=== PATIENT | male | born 1985 | race Caucasian/White ===

== ENCOUNTER 2017-12-03 00:02 | Emergency (ER) | payer BC ==
[2017-12-03 00:12] VITALS: TEMP 98.6
[2017-12-03 00:49] LABS: Basophils # (A) 0.1 k/uL (0-0.2); Basophils % (A) 1 %; Eosinophils # (A) 0.4 k/uL (0-0.7); Eosinophils % (A) 5 %; HCT 38.6 % (39.0-53.0); HGB 13.6 gm/dL (13.0-17.5); Lymphocytes # (A) 3.3 k/uL (1.0-4.8); Lymphocytes % (A) 45 %; MCH 30.1 pg (25.0-35.0); MCHC 35.1 g/dL (31.0-37.0); MCV 85.8 fL (80.0-100.0); Mean Platelet Volume 7.4; Monocytes # (A) 0.4 k/uL (0-1.0); Monocytes % (A) 6 %; Neutrophils % (A) 41 %; Platelet Count 255 k/uL (150-450); WBC 7.3 k/uL (3.8-10.6)
[2017-12-03 00:57] LABS: ALT 37 U/L (21-72); AST 32 U/L (17-59); Albumin 3.9 g/dL (3.5-5.0); Alkaline Phosphatase 59 U/L (38-126); Anion Gap 9 mmol/L; Blood Urea Nitrogen 24 mg/dL (9-20); Calcium 9.2 mg/dL (8.4-10.2); Carbon Dioxide 26 mmol/L (22-30); Chloride 108 mmol/L (98-107); Glucose 131 mg/dL (74-99); Potassium 3.6 mmol/L (3.5-5.1); Sodium 143 mmol/L (137-145); Total Bilirubin 0.3 mg/dL (0.2-1.3); Total Protein 6.5 g/dL (6.3-8.2)
--- NOTE | 2017-12-03 01:16 | CT ---
EXAMINATION TYPE: CT brain wo con DATE OF EXAM: 12/03/2017 COMPARISON: NONE HISTORY: syncope CT DLP: 995.50 mGycm. Automated Exposure Control for Dose Reduction was Utilized. TECHNIQUE: CT scan of the head is performed without contrast. FINDINGS: Ventricles and sulci appear normal. There is no mass effect nor midline shift. There is n o sign of intracranial hemorrhage. The calvarium is intact. There is mucosal thickening in the left m axillary sinus and to some extent the left side sphenoid sinus. CONCLUSION: Normal CT scan of the brain. Left-sided sinusitis.
[2017-12-03 01:17] VITALS: BP 126/73; PULSE 81; RESP 16
--- NOTE | 2017-12-03 01:17 | XR ---
EXAMINATION TYPE: XR chest 1V portable DATE OF EXAM: 12/03/2017 COMPARISON: NONE HISTORY: Syncope TECHNIQUE: Single frontal view of the chest is obtained. FINDINGS: Heart and mediastinum are normal. Lungs are clear. Diaphragm is normal. Bony thorax is int act. There are chest leads. IMPRESSION: Normal chest
--- NOTE | 2017-12-03 01:17 | ED ---
Syncope HPI - General Chief Complaint: Syncope Stated Complaint: Near Syncope Time Seen by Provider: 12/03/17 00:15 Source: EMS Mode of arrival: EMS Limitations: no limitations - History of Present Illness Initial Comments: This patient is a 32-year-old man who presents to be evaluated after he had an episode which he nearly passed out. The patient relates that he was in bed tonight and noted that his left leg was numb. He states that it "felt like it went to sleep." He was getting up to take the pressure off his leg and when he stood up he felt like he was going to pass out. He noticed that following that his heart was racing. The patient then went to lie back down in the bed. He states that after about a minute the symptoms had passed, but during that time his had called EMS. Patient currently states that he feels back to his baseline. All of the leg symptoms had resolved. He does not have any chest symptoms. He had not noted any palpitations other then at the point where he felt he was going to pass out but those had resolved as well. MD Complaint: almost passed out -: minutes(s) Prodromal Symptoms: other -: second(s) Injuries Sustained Associated with Event: None Current Symptoms: back to baseline Context: getting out of bed Treatments Prior to Arrival: none - Related Data Allergies Allergy/AdvReac Type Severity Reaction Status Date / Time No Known Allergies Allergy Verified 12/03/17 00:12 Review of Systems ROS Statement: Those systems with pertinent positive or pertinent negative responses have been documented in the HPI. ROS Other: All systems not noted in ROS Statement are negative. Constitutional: Denies: fever, chills, weakness Eyes: Denies: vision change Respiratory: Denies: cough, dyspnea, wheezes Cardiovascular: Reports: as per HPI, palpitations, syncope (Near syncope). Denies: chest pain, dyspnea on exertion, orthopnea Gastrointestinal: Denies: abdominal pain, nausea, vomiting Genitourinary: Denies: dysuria, hematuria Musculoskeletal: Denies: back pain Skin: Denies: rash Neurological: Reports: paresthesias. Denies: headache, weakness, numbness Past Medical History Past Medical History: Hypertension History of Any Multi-Drug Resistant Organisms: None Reported Additional Past Surgical History / Comment(s): Vasectomy, colonoscopy Past Psychological History: No Psychological Hx Reported Smoking Status: Former smoker Past Alcohol Use History: Occasional Past Drug Use History: None Reported General Exam Limitations: no limitations General appearance: alert, in no apparent distress Head exam: Present: atraumatic, normocephalic Eye exam: Present: normal appearance, PERRL, EOMI. Absent: scleral icterus, conjunctival injection, nystagmus ENT exam: Present: normal oropharynx, mucous membranes moist Neck exam: Present: normal inspection Respiratory exam: Present: normal lung sounds bilaterally. Absent: respiratory distress, wheezes, rales, rhonchi, stridor Cardiovascular Exam: Present: regular rate, normal rhythm, normal heart sounds. Absent: systolic murmur, diastolic murmur, rubs, gallop GI/Abdominal exam: Present: soft. Absent: distended, tenderness, guarding, rebound, rigid Extremities exam: Present: normal inspection, normal capillary refill. Absent: pedal edema, calf tenderness Back exam: Present: normal inspection. Absent: CVA tenderness (R), CVA tenderness (L) Neurological exam: Present: alert, oriented X3, CN II-XII intact, normal gait. Absent: motor sensory deficit Skin exam: Present: warm, dry, intact, normal color. Absent: rash Course Vital Signs 12/03/17 12/03/17 00:07 01:16 Temperature 98.6 F Pulse Rate 97 81 Respiratory 18 16 Rate Blood Pressure 156/72 126/73 O2 Sat by Pulse 98 96 Oximetry EKG Findings - EKG Comments: EKG Findings:: There is moderate voltage criteria for LVH - EKG Results: EKG: interpreted by ERMD, sinus rhythm (Rate approximate 79 bpm, with sinus arrhythmia), normal axis (Normal), normal ST/T (Normal) Medical Decision Making - Lab Data Result diagrams: 12/03/17 00:15 12/03/17 00:15 Lab Results 12/03/17 12/03/17 12/03/17 Range/Units 00:15 00:15 00:15 WBC 7.3 (3.8-10.6) k/uL RBC 4.50 (4.30-5.90) m/uL Hgb 13.6 (13.0-17.5) gm/dL Hct 38.6 L (39.0-53.0) % MCV 85.8 (80.0-100.0) fL MCH 30.1 (25.0-35.0) pg MCHC 35.1 (31.0-37.0) g/dL RDW 13.0 (11.5-15.5) % Plt Count 255 (150-450) k/uL Neutrophils % 41 % Lymphocytes % 45 % Monocytes % 6 % Eosinophils % 5 % Basophils % 1 % Neutrophils # 3.0 (1.3-7.7) k/uL Lymphocytes # 3.3 (1.0-4.8) k/uL Monocytes # 0.4 (0-1.0) k/uL Eosinophils # 0.4 (0-0.7) k/uL Basophils # 0.1 (0-0.2) k/uL Sodium 143 (137-145) mmol/L Potassium 3.6 (3.5-5.1) mmol/L Chloride 108 H (98-107) mmol/L Carbon Dioxide 26 (22-30) mmol/L Anion Gap 9 mmol/L BUN 24 H (9-20) mg/dL Creatinine 0.80 (0.66-1.25) mg/dL Est GFR (CKD-EPI)AfAm >90 (>60 ml/min/1.73 sqM) Est GFR (CKD-EPI)NonAf >90 (>60 ml/min/1.73 sqM) Glucose 131 H (74-99) mg/dL Calcium 9.2 (8.4-10.2) mg/dL Total Bilirubin 0.3 (0.2-1.3) mg/dL AST 32 (17-59) U/L ALT 37 (21-72) U/L Alkaline Phosphatase 59 (38-126) U/L Troponin I 0.017 (0.000-0.034) ng/mL Total Protein 6.5 (6.3-8.2) g/dL Albumin 3.9 (3.5-5.0) g/dL Disposition Clinical Impression: TIA (transient ischemic attack) Disposition: HOME SELF-CARE Condition: Good Instructions: Transient Ischemic Attack (ED) Referrals: Akash Sim MD [Primary Care Provider] - 1-2 days Cristobal Damon MD [STAFF PHYSICIAN] - 1-2 days Radha Villarreal MD [STAFF PHYSICIAN] - 1-2 days
== END 2017-12-03 02:37 | disposition home or self-care (01) ==
LOC: EC 00:02
DX: G45.9 Transient cerebral ischemic attack, unspecified (principal); Z87.891 Personal history of nicotine dependence
CPT/HCPCS: 36415; 70450; 71045; 80053; 84484; 85025; 93005; 99285

== ENCOUNTER 2017-12-25 18:52 | Emergency (ER) | payer BC ==
[2017-12-25 19:34] VITALS: TEMP 98.8
[2017-12-25] MEDS ORDERED: ASPIRIN 81 MG PO STA (20:33)
--- NOTE | 2017-12-25 20:52 | ED ---
Chest Pain HPI - General Chief Complaint: Chest Pain Stated Complaint: not feeling well/chest pain Time Seen by Provider: 12/25/17 20:32 Source: patient, RN notes reviewed Mode of arrival: ambulatory Limitations: no limitations - History of Present Illness Initial Comments: This a 32-year-old male presents emergency Department chief complaint of episode of chest pain. Patient states he was driving home earlier states that he felt some tightness in his chest. It only lasted a short period of time and dissipated. He is nonradiating pain he had no associated symptoms. Denies shortness breath, headache, dizziness, nausea, vomiting. He has no prior cardiac history. He states he was in the hospital approximately one month ago for TIA symptoms. He states every came back normal at that time. He does take a baby aspirin at nighttime he has not taken anything today. He has no prior cardiac disease no family history. He does state that he has a history of hypertension no hyperlipidemia no diabetes and he is a nonsmoker - Related Data Home Medications Medication Instructions Recorded Confirmed Aspirin [Adult Low Dose Aspirin EC] 81 mg PO DAILY 12/25/17 12/25/17 Lisinopril [Prinivil] 10 mg PO DAILY 12/25/17 12/25/17 Allergies Allergy/AdvReac Type Severity Reaction Status Date / Time No Known Allergies Allergy Verified 12/25/17 20:38 Review of Systems ROS Statement: Those systems with pertinent positive or pertinent negative responses have been documented in the HPI. ROS Other: All systems not noted in ROS Statement are negative. Past Medical History Past Medical History: Hypertension History of Any Multi-Drug Resistant Organisms: None Reported Additional Past Surgical History / Comment(s): Vasectomy, colonoscopy Past Psychological History: No Psychological Hx Reported Smoking Status: Former smoker Past Alcohol Use History: Occasional Past Drug Use History: None Reported General Exam Limitations: no limitations General appearance: alert, in no apparent distress Head exam: Present: atraumatic, normocephalic, normal inspection Eye exam: Present: normal appearance, PERRL, EOMI. Absent: scleral icterus, conjunctival injection, periorbital swelling ENT exam: Present: normal exam, normal oropharynx, mucous membranes moist Neck exam: Present: normal inspection. Absent: tenderness, meningismus, lymphadenopathy Respiratory exam: Present: normal lung sounds bilaterally. Absent: respiratory distress, wheezes, rales, rhonchi, stridor, chest wall tenderness Cardiovascular Exam: Present: regular rate, normal rhythm, normal heart sounds. Absent: systolic murmur, diastolic murmur, rubs, gallop, clicks GI/Abdominal exam: Present: soft, normal bowel sounds. Absent: distended, tenderness, guarding, rebound, rigid Back exam: Absent: CVA tenderness (R), CVA tenderness (L) Skin exam: Present: warm, dry, intact, normal color. Absent: rash Course Vital Signs 12/25/17 12/25/17 19:30 21:43 Temperature 98.8 F Pulse Rate 76 65 Respiratory 16 18 Rate Blood Pressure 171/75 136/75 O2 Sat by Pulse 98 98 Oximetry Chest Pain MDM - MDM This a 32-year-old male presented from for discomfort. An episode a few hours prior arrival. Patient states that pain lasts a few seconds and dissipated. No associated symptoms. Patient states he has no current chest pain. Patient has been recently evaluated by cardiology very to TIA symptoms. Patient lab work, EKG reviewed no acute abnormality. Patient be discharged at this time. Disposition Clinical Impression: Atypical chest pain Disposition: HOME SELF-CARE Condition: Stable Instructions: Chest Pain (ED) Additional Instructions: Please return to the Emergency Department if symptoms worsen or any other concerns. Referrals: Akash Sim MD [Primary Care Provider] - 1-2 days Time of Disposition: 22:04
[2017-12-25 21:22] LABS: Basophils % (A) 1 %; Eosinophils # (A) 0.7 k/uL (0-0.7); Eosinophils % (A) 9 %; HCT 43.7 % (39.0-53.0); HGB 14.5 gm/dL (13.0-17.5); Lymphocytes # (A) 2.6 k/uL (1.0-4.8); Lymphocytes % (A) 31 %; MCH 28.8 pg (25.0-35.0); MCHC 33.2 g/dL (31.0-37.0); MCV 86.7 fL (80.0-100.0); Mean Platelet Volume 7.7; Monocytes # (A) 0.6 k/uL (0-1.0); Monocytes % (A) 8 %; Neutrophils # (A) 4.1 k/uL (1.3-7.7); Neutrophils % (A) 50 %; Platelet Count 236 k/uL (150-450); RBC 5.04 m/uL (4.30-5.90); WBC 8.2 k/uL (3.8-10.6)
--- NOTE | 2017-12-25 21:29 | XR ---
EXAMINATION TYPE: XR chest 2V DATE OF EXAM: 12/25/2017 COMPARISON: 12/03/2017 HISTORY: Chest pain TECHNIQUE: Frontal and lateral views of the chest are obtained. FINDINGS: Heart and mediastinum are normal. Lungs are clear. Diaphragm is normal. Bony thorax is int act. There are chest leads. IMPRESSION: Normal chest. No change.
[2017-12-25 21:36] LABS: ALT 32 U/L (21-72); AST 26 U/L (17-59); Albumin 4.3 g/dL (3.5-5.0); Alkaline Phosphatase 63 U/L (38-126); Anion Gap 13 mmol/L; Blood Urea Nitrogen 18 mg/dL (9-20); Calcium 9.7 mg/dL (8.4-10.2); Carbon Dioxide 28 mmol/L (22-30); Chloride 101 mmol/L (98-107); Glucose 88 mg/dL (74-99); Lipase 71 U/L (23-300); Potassium 4.1 mmol/L (3.5-5.1); Sodium 142 mmol/L (137-145); Total Bilirubin 0.3 mg/dL (0.2-1.3); Total Protein 7.1 g/dL (6.3-8.2)
[2017-12-25 21:37] LABS: Partial Thromboplastin Time 24.3 sec (22.0-30.0)
[2017-12-25 21:42] LABS: Creatine Kinase 235 U/L (55-170)
[2017-12-25 21:44] VITALS: BP 136/75; PULSE 65; RESP 18
[2017-12-25 21:55] LABS: Troponin I <0.012 ng/mL (0.000-0.034)
[2017-12-25 21:58] LABS: Creatine Kinase MB 3.2 ng/mL (0.0-2.4)
== END 2017-12-25 22:12 | disposition home or self-care (01) ==
LOC: EC 18:52
DX: R07.89 Other chest pain (principal); I10 Essential (primary) hypertension; Z79.82 Long term (current) use of aspirin; Z79.899 Other long term (current) drug therapy; Z87.891 Personal history of nicotine dependence
CPT/HCPCS: 36415; 71046; 80053; 82550; 82553; 83690; 83735; 84484; 85025; 85610; 85730; 93005; 99285

== ENCOUNTER → 2018-01-17 | Outpatient (CLI) | payer BC ==
[2018-01-17 18:08] LABS: D-Dimer <0.17 mg/L FEU (<0.60); Fibrinogen 240 mg/dL (200-500)
[2018-01-18 02:05] LABS: Cardiolipin Ab IgG Interp NEGATIVE (NEGATIVE); Cardiolipin IgA Antibody <0.5 U/mL
[2018-01-18 02:06] LABS: Cardiolipin Ab IgM Interp NEGATIVE (NEGATIVE); Cardiolipin IgM Antibody 0.5 U/mL
[2018-01-18 13:00] LABS: APTT 39 Sec(s) (<43); Dilute Russell Viper Venom 39 Sec(s) (<44)
[2018-01-18 13:04] LABS: Anti-Thrombin III Antigen 117 % (80 - 120)
[2018-01-19 13:06] LABS: Anti-Thrombin III Activity 125 % (79-109)
[2018-01-19 13:41] LABS: Protein C (Activity) 125 % (71-138)
== END | disposition home or self-care (01) ==
LOC: LABWHC1 16:05
PROVIDERS: ATTEND Psychiatry & Neurology Pain Medicine
DX: G45.9 Transient cerebral ischemic attack, unspecified (principal)
CPT/HCPCS: 36415; 81240; 81291; 83090; 85300; 85301; 85303; 85306; 85379; 85384; 85613; 85670; 85730; 86147

== ENCOUNTER 2018-02-19 01:44 | Emergency (ER) | payer BC ==
--- NOTE | 2018-02-19 02:12 | ED ---
Chest Pain HPI - General Chief Complaint: Chest Pain Stated Complaint: Tingling in legs, chest pain, anxiety Time Seen by Provider: 02/19/18 02:03 Source: patient Mode of arrival: wheelchair Limitations: no limitations - History of Present Illness Initial Comments: This patient's a 32-year-old man who presents with complaint that he feels a dull sensation on his chest. It is been going on since the morning. It is mild and constant. The patient has not noted any worsening or relieving factors. He states that he has also had some associated tingling of both feet, and he has been feeling somewhat anxious. Patient states she has been undergoing workup for similar symptoms which have been occurring since November, and also the associated anxiety. MD Complaint: chest pain Onset/Timin -: hour(s) Onset: during rest Pain Location: substernal Pain Radiation: none Severity: mild Quality: dull Consistency: constant Improves With: nothing Worsens With: nothing Other Symptoms: other (Anxiety) Treatments Prior to Arrival: none - Related Data Home Medications Medication Instructions Recorded Confirmed Aspirin [Adult Low Dose Aspirin EC] 81 mg PO DAILY 12/25/17 12/25/17 Lisinopril [Prinivil] 10 mg PO DAILY 12/25/17 12/25/17 Allergies Allergy/AdvReac Type Severity Reaction Status Date / Time No Known Allergies Allergy Verified 02/19/18 01:51 Review of Systems ROS Statement: Those systems with pertinent positive or pertinent negative responses have been documented in the HPI. ROS Other: All systems not noted in ROS Statement are negative. Constitutional: Denies: fever, chills, weakness Respiratory: Denies: cough, dyspnea Cardiovascular: Reports: chest pain. Denies: palpitations, edema, syncope Gastrointestinal: Denies: abdominal pain, vomiting, diarrhea Musculoskeletal: Denies: back pain Skin: Denies: rash Neurological: Reports: paresthesias. Denies: headache, weakness, numbness Psychiatric: Reports: anxiety EKG Findings - EKG Results: EKG: interpreted by WALLACE, sinus rhythm (Rate approximately 63 bpm), normal axis , normal QRS, normal ST/T Past Medical History Past Medical History: Hypertension History of Any Multi-Drug Resistant Organisms: None Reported Additional Past Surgical History / Comment(s): Vasectomy, colonoscopy, Past Psychological History: No Psychological Hx Reported Smoking Status: Former smoker Past Alcohol Use History: Occasional Past Drug Use History: None Reported General Exam Limitations: no limitations General appearance: alert, in no apparent distress, anxious Head exam: Present: atraumatic, normocephalic Eye exam: Present: normal appearance. Absent: scleral icterus, conjunctival injection Neck exam: Present: normal inspection, full ROM Respiratory exam: Present: normal lung sounds bilaterally. Absent: respiratory distress, wheezes, rales, rhonchi, stridor Cardiovascular Exam: Present: regular rate, normal rhythm, normal heart sounds. Absent: systolic murmur, diastolic murmur, rubs, gallop GI/Abdominal exam: Present: soft. Absent: tenderness, guarding, rebound, mass Extremities exam: Present: normal inspection, normal capillary refill. Absent: pedal edema, calf tenderness Back exam: Present: normal inspection. Absent: CVA tenderness (R), CVA tenderness (L) Neurological exam: Present: alert Psychiatric exam: Present: anxious. Absent: depressed, agitated, suicidal ideation Skin exam: Present: warm, dry, intact, normal color. Absent: rash Course Vital Signs 02/19/18 02/19/18 02/19/18 01:48 02:51 04:16 Temperature 97.5 F L 98.6 F Pulse Rate 94 65 76 Respiratory 18 18 17 Rate Blood Pressure 137/65 122/71 114/64 O2 Sat by Pulse 100 98 99 Oximetry Disposition Clinical Impression: Chest pain, Anxiety Disposition: HOME SELF-CARE Condition: Good Instructions: Chest Pain (ED) Is patient prescribed a controlled substance at d/c from ED?: No Referrals: Akash Sim MD [Primary Care Provider] - 1-2 days
--- NOTE | 2018-02-19 03:13 | XR ---
EXAM: XR Chest, 2 Views CLINICAL HISTORY: ITS.REASON XR Reason: Pain TECHNIQUE: Frontal and lateral views of the chest. COMPARISON: December 25, 2017 FINDINGS: Lungs: Unremarkable. No consolidation. Pleural space: Unremarkable. No pneumothorax. Heart: Unremarkable. No cardiomegaly. Mediastinum: Unremarkable. Bones/joints: Unremarkable. IMPRESSION: Normal chest x-rays. No change from the prior study
[2018-02-19 05:49] VITALS: BP 112/65; PULSE 54; RESP 18; TEMP 97.8
== END 2018-02-19 05:25 | disposition home or self-care (01) ==
LOC: EC 01:44
DX: R07.9 Chest pain, unspecified (principal); F41.9 Anxiety disorder, unspecified; R20.2 Paresthesia of skin; I10 Essential (primary) hypertension; Z87.891 Personal history of nicotine dependence; Z79.82 Long term (current) use of aspirin; Z79.899 Other long term (current) drug therapy
CPT/HCPCS: 71046; 93005; 99285

== ENCOUNTER → 2018-02-19 | Outpatient (CLI) | payer BC ==
[2018-02-19 15:20] LABS: Blood Urea Nitrogen 14 mg/dL (9-20)
== END | disposition home or self-care (01) ==
LOC: LABWHC1 14:21
PROVIDERS: ATTEND Psychiatry & Neurology Pain Medicine
DX: G45.9 Transient cerebral ischemic attack, unspecified (principal)
CPT/HCPCS: 36415; 82565; 84520

== ENCOUNTER → 2018-02-23 | Outpatient (CLI) | payer BC ==
--- NOTE | 2018-02-23 21:45 | MR ---
EXAMINATION TYPE: MR brain wo con DATE OF EXAM: 02/23/2018 COMPARISON: CT brain 12/03/2017 HISTORY: Transient cerebral ischemic attack CONTRAST: Performed utilizing 0 mL intravenous Gadavist gadolinium contrast. TECHNIQUE: Multiplanar, multiecho imaging on a 3.0 Maira magnet is performed through the brain. Stud y is performed within 24 hours of arrival to the hospital. The craniovertebral junction is normal. The pituitary is normal. Diffusion-weighted imaging is performed. No abnormal hyperintensity is present to suggest an acute i ntracranial infarct or acute ischemic change. Signal within the brain is normal. No mass effect is evident. Ventricles and sulci are appropriate for the patient age. There is minimal mucosal thickening within ethmoid air cells. Remaining paranasal sinuses and mastoid air cells are clear. Normal vascular flow voids are within the visualized intracranial cerebral vasc ulature. IMPRESSIONS: 1. Normal noncontrast MRI brain
--- NOTE | 2018-02-23 21:54 | MR ---
EXAMINATION TYPE: MR angio head wo/neck wo/w con DATE OF EXAM: 02/23/2018 COMPARISON: NONE HISTORY: Transient cerebral ischemic attack TECHNIQUE: Time of flight images focusing on the [place] were performed without contrast.. 2-D and 3-D postprocessing imaging is performed. FINDINGS: [place]: Vertebral basilar system appears normal posterior cerebral vasculature within the f [id number] is unremarkable. Internal carotid arteries bifurcate A1 and M1 segments. The A2 segments are normal. There is a patent anterior communicating artery. Small bilateral patent posterior commun icating arteries are present. This is better visualized on the right. Middle cerebral artery branches are normal. On the summation study there is a focal area of increased signal lateral to the posterior cerebral ar teries and posterior to the internal carotid artery. Three-D reconstructed images show this is outsid e of the intracerebral vasculature is at the skull base. On source images this at the base of the rig ht temporal bone. Series 201 image 1. This appears to communicate with the vertebral artery outside t he skull base. Aneurysm is not identified on source images through this region. Carotids: There is a three-vessel arch. Some motion artifact causes some limitation of this evaluatio n. The vertebral arteries appears normal. No flow-limiting stenosis is evident at the bilateral carot id bifurcations. No flow gap evident. IMPRESSION: 1. Normal MRA [place]. 2. No flow-limiting stenosis in neck vessels.
== END | disposition home or self-care (01) ==
LOC: RADMRIMAIN 12:47
PROVIDERS: ATTEND Psychiatry & Neurology Neurology
DX: G45.9 Transient cerebral ischemic attack, unspecified (principal)
CPT/HCPCS: 70544; 70549; 70551; A9581

== ENCOUNTER 2018-05-08 19:53 | Emergency (ER) | payer BC ==
[2018-05-08 20:18] VITALS: RESP 18; TEMP 98.1
[2018-05-08 20:58] LABS: Basophils # (A) 0.1 k/uL (0-0.2); Basophils % (A) 1 %; Eosinophils # (A) 0.5 k/uL (0-0.7); Eosinophils % (A) 6 %; HCT 41.8 % (39.0-53.0); HGB 13.7 gm/dL (13.0-17.5); Lymphocytes # (A) 2.8 k/uL (1.0-4.8); Lymphocytes % (A) 33 %; MCH 28.5 pg (25.0-35.0); MCHC 32.6 g/dL (31.0-37.0); MCV 87.3 fL (80.0-100.0); Mean Platelet Volume 7.1; Monocytes # (A) 0.6 k/uL (0-1.0); Monocytes % (A) 7 %; Neutrophils # (A) 4.5 k/uL (1.3-7.7); Neutrophils % (A) 52 %; Platelet Count 242 k/uL (150-450); RBC 4.79 m/uL (4.30-5.90); RDW 12.8 % (11.5-15.5); WBC 8.6 k/uL (3.8-10.6)
[2018-05-08 21:01] LABS: Partial Thromboplastin Time 24.6 sec (22.0-30.0); Prothrombin Time 9.9 sec (9.0-12.0)
[2018-05-08 21:03] LABS: ALT 32 U/L (21-72); AST 25 U/L (17-59); Albumin 4.1 g/dL (3.5-5.0); Alkaline Phosphatase 60 U/L (38-126); Anion Gap 10 mmol/L; Blood Urea Nitrogen 17 mg/dL (9-20); Calcium 9.1 mg/dL (8.4-10.2); Carbon Dioxide 25 mmol/L (22-30); Chloride 104 mmol/L (98-107); Glucose 99 mg/dL (74-99); Magnesium 1.9 mg/dL (1.6-2.3); Potassium 3.9 mmol/L (3.5-5.1); Sodium 139 mmol/L (137-145); Total Bilirubin 0.4 mg/dL (0.2-1.3); Total Protein 6.9 g/dL (6.3-8.2)
[2018-05-08 21:10] LABS: Creatine Kinase 204 U/L (55-170)
[2018-05-08 21:24] LABS: Creatine Kinase MB 1.9 ng/mL (0.0-2.4); Troponin I <0.012 ng/mL (0.000-0.034)
--- NOTE | 2018-05-08 21:26 | ED ---
Chest Pain HPI - General Chief Complaint: Chest Pain Stated Complaint: Palpations Time Seen by Provider: 05/08/18 21:20 Source: patient Mode of arrival: ambulatory Limitations: no limitations - History of Present Illness Initial Comments: 33-year-old male patient presents to the emergency department today for evaluation of left-sided chest pain and tingling to the left cheek. Patient states he has been having these symptoms intermittently over the last month or so. Patient states he has had previous workups that were normal. States he has seen cardiology and neurology for his symptoms and he has follow-up appointments in 1 year. Patient states that he is not currently experiencing any of his symptoms. States that when it comes on the pain to the left side of his chest is like an aching pain. He denies any shortness of breath, nausea, vomiting, sweats, dizziness, or weakness with the symptoms. He denies any cough or congestion. Denies any fevers or chills. Denies any family history of cardiac problems. Patient denies any recent rash, chest pain, abdominal pain , diarrhea, constipation, back pain, hematuria, dysuria, urinary urgency, urinary frequency, headache, visual changes, or any other complaints. - Related Data Home Medications Medication Instructions Recorded Confirmed Aspirin [Adult Low Dose Aspirin EC] 81 mg PO DAILY 12/25/17 12/25/17 Lisinopril [Prinivil] 10 mg PO DAILY 12/25/17 12/25/17 Allergies Allergy/AdvReac Type Severity Reaction Status Date / Time No Known Allergies Allergy Verified 05/08/18 20:18 Review of Systems ROS Statement: Those systems with pertinent positive or pertinent negative responses have been documented in the HPI. ROS Other: All systems not noted in ROS Statement are negative. EKG Findings - EKG Comments: EKG Findings:: EKG obtained at 2038 shows normal sinus rhythm with a sinus arrhythmia. Ventricular rate is 70, W[place] interval 156, QR alevism 90, QT 374 , QTC 403. No evidence of ST elevation or depression. Past Medical History Past Medical History: Hypertension History of Any Multi-Drug Resistant Organisms: None Reported Past Surgical History: No Surgical Hx Reported Additional Past Surgical History / Comment(s): Vasectomy, colonoscopy, Past Psychological History: No Psychological Hx Reported Smoking Status: Former smoker Past Alcohol Use History: Occasional Past Drug Use History: None Reported General Exam Limitations: no limitations General appearance: alert, in no apparent distress, other (This is a well- developed, well-nourished adult male patient in no acute distress. Vital signs upon presentation are temperature 98.1F, pulse 72, respiratory rate 18, blood pressure 143/84, pulse ox 100% on room air.) Eye exam: Present: normal appearance, PERRL, EOMI. Absent: scleral icterus, conjunctival injection, periorbital swelling Respiratory exam: Present: normal lung sounds bilaterally. Absent: respiratory distress, wheezes, rales, rhonchi, stridor Cardiovascular Exam: Present: regular rate, normal rhythm, normal heart sounds. Absent: systolic murmur, diastolic murmur, rubs, gallop, clicks GI/Abdominal exam: Present: soft, normal bowel sounds. Absent: distended, tenderness, guarding, rebound, rigid Neurological exam: Present: alert, oriented X3, CN II-XII intact Psychiatric exam: Present: normal affect, normal mood Skin exam: Present: warm, dry, intact, normal color. 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 Patient does admit to being quite anxious about heart problems and dying. States that he is unable sleep due to constantly thinking about his heart and not waking up in the morning. Physical examination is unremarkable. Labs reviewed and are unremarkable. Cardiac labs are negative. EKG shows sinus rhythm with a sinus arrhythmia. I did discuss findings and results with the patient. We did discuss anxiety as a possible cause of his symptoms and he is instructed to discuss anxiety medication with his primary care physician. Patient does feel comfortable being discharged home now that he has had normal labs and EKG. Return parameters were discussed in detail. He verbalizes understanding and agrees with this plan. Disposition Clinical Impression: Chest pain, Anxiety Disposition: HOME SELF-CARE Condition: Good Instructions: Chest Pain (ED), Anxiety (ED) Additional Instructions: Follow-up with your primary care physician for reevaluation. Discussed possible anxiety medications. Return here immediately for any new, worsening, or concerning symptoms. Is patient prescribed a controlled substance at d/c from ED?: No Referrals: Akash Sim MD [Primary Care Provider] - 1-2 days Time of Disposition: 21:52
[2018-05-08 22:05] VITALS: BP 146/72; PULSE 105
== END 2018-05-08 22:04 | disposition home or self-care (01) ==
LOC: EC 19:53
DX: R07.9 Chest pain, unspecified (principal); F41.9 Anxiety disorder, unspecified; I10 Essential (primary) hypertension; Z87.891 Personal history of nicotine dependence; Z79.899 Other long term (current) drug therapy; Z79.82 Long term (current) use of aspirin
CPT/HCPCS: 36415; 80053; 82550; 82553; 83735; 84484; 85025; 85610; 85730; 93005; 99285

== ENCOUNTER 2018-08-18 23:39 | Emergency (ER) | payer BC ==
[2018-08-19] MEDS ORDERED: MAG HYDROX/AL HYDROX/SIMETH 30 ML, HYOSCYAMINE ELIXIR 10 ML, CIMETIDINE HCL 300 MG, LID... PO STA ×4 (00:36)
--- NOTE | 2018-08-19 00:40 | ED ---
Chest Pain HPI - General Chief Complaint: Chest Pain Stated Complaint: Heartburn, diarrhea Time Seen by Provider: 08/19/18 00:25 Source: patient Mode of arrival: wheelchair Limitations: no limitations - History of Present Illness MD Complaint: chest pain -: hour(s) Onset: during rest Pain Location: substernal Pain Radiation: none Severity: moderate Quality: other (Burning) Consistency: constant Improves With: nothing Worsens With: nothing Other Symptoms: palpitations - Related Data Home Medications Medication Instructions Recorded Confirmed Lisinopril [Prinivil] 40 mg PO DAILY 12/25/17 08/19/18 Previous Rx's Medication Instructions Recorded Famotidine [Pepcid] 20 mg PO BID #14 tablet 08/19/18 Allergies Allergy/AdvReac Type Severity Reaction Status Date / Time adhesive tape Allergy Rash/Hives Verified 08/19/18 00:05 Review of Systems ROS Statement: Those systems with pertinent positive or pertinent negative responses have been documented in the HPI. ROS Other: All systems not noted in ROS Statement are negative. Constitutional: Denies: fever, chills Respiratory: Denies: cough, dyspnea Cardiovascular: Reports: chest pain, palpitations. Denies: edema, syncope Gastrointestinal: Denies: abdominal pain, vomiting, diarrhea Musculoskeletal: Denies: back pain Neurological: Denies: headache Psychiatric: Reports: anxiety EKG Findings - EKG Results: EKG: interpreted by WALLACE, sinus rhythm, normal axis, normal QRS, normal ST/T, no acute changes EKG shows: tachycardia (Rate 112 bpm) Past Medical History Past Medical History: Hypertension History of Any Multi-Drug Resistant Organisms: None Reported Past Surgical History: No Surgical Hx Reported Additional Past Surgical History / Comment(s): Vasectomy, colonoscopy, Past Psychological History: No Psychological Hx Reported Smoking Status: Former smoker Past Alcohol Use History: Occasional Past Drug Use History: None Reported General Exam Limitations: no limitations General appearance: alert, in no apparent distress, anxious Head exam: Present: atraumatic, normocephalic Eye exam: Present: normal appearance. Absent: scleral icterus, conjunctival injection ENT exam: Present: normal oropharynx Neck exam: Present: normal inspection Respiratory exam: Present: normal lung sounds bilaterally. Absent: respiratory distress, wheezes, rales, rhonchi, stridor Cardiovascular Exam: Present: regular rate, normal rhythm, normal heart sounds. Absent: systolic murmur, diastolic murmur, rubs, gallop GI/Abdominal exam: Present: soft. Absent: distended, tenderness, guarding, rebound, mass Extremities exam: Present: normal inspection, normal capillary refill. Absent: pedal edema, calf tenderness Back exam: Present: normal inspection Neurological exam: Present: alert Psychiatric exam: Present: anxious Skin exam: Present: warm, dry, intact, normal color. Absent: rash Course Vital Signs 08/19/18 08/19/18 08/19/18 00:03 00:37 01:14 Temperature 99.2 F Pulse Rate 129 H 120 H 118 H Respiratory 18 17 18 Rate Blood Pressure 122/72 130/85 129/87 O2 Sat by Pulse 97 96 96 Oximetry 08/19/18 01:51 Temperature Pulse Rate 103 H Respiratory 18 Rate Blood Pressure 111/71 O2 Sat by Pulse 96 Oximetry Disposition Clinical Impression: Chest pain Disposition: HOME SELF-CARE Condition: Good Instructions: Chest Pain (ED) Prescriptions: Famotidine [Pepcid] 20 mg PO BID #14 tablet Is patient prescribed a controlled substance at d/c from ED?: No Referrals: Akash Sim MD [Primary Care Provider] - 1-2 days
[2018-08-19] MEDS ORDERED: NALOXONE 0.4 MG/ML 1 ML VIAL IV PRN (00:49)
[2018-08-19] MEDS ORDERED: MORPHINE SULFATE 4 MG/ML SYRINGE IV PRN (00:49)
[2018-08-19] MEDS ORDERED: HYDROcodone/APAP 5-325MG 1 EACH TAB PO PRN (00:49)
[2018-08-19] MEDS ORDERED: SODIUM CHLORIDE 0.9% 1,000 ML IV SCH (01:00)
--- NOTE | 2018-08-19 01:01 | XR ---
EXAMINATION TYPE: XR chest 2V DATE OF EXAM: 08/19/2018 COMPARISON: 02/19/2018 HISTORY: Chest pain TECHNIQUE: Frontal and lateral views of the chest are obtained. FINDINGS: Heart and mediastinum are normal. Lungs are clear. Diaphragm is normal. Bony thorax is int act. There are chest leads. IMPRESSION: Normal chest. No change.
[2018-08-19 01:15] VITALS: RESP 18
[2018-08-19 01:42] LABS: Basophils % (A) 0 %; Eosinophils # (A) 0.3 k/uL (0-0.7); Eosinophils % (A) 2 %; HCT 46.4 % (39.0-53.0); HGB 15.5 gm/dL (13.0-17.5); Lymphocytes # (A) 1.1 k/uL (1.0-4.8); Lymphocytes % (A) 9 %; MCH 28.9 pg (25.0-35.0); MCHC 33.5 g/dL (31.0-37.0); MCV 86.3 fL (80.0-100.0); Mean Platelet Volume 6.9; Monocytes # (A) 0.8 k/uL (0-1.0); Monocytes % (A) 7 %; Neutrophils # (A) 9.7 k/uL (1.3-7.7); Neutrophils % (A) 81 %; Platelet Count 261 k/uL (150-450); RBC 5.38 m/uL (4.30-5.90); RDW 12.8 % (11.5-15.5)
[2018-08-19 01:47] LABS: ALT 38 U/L (21-72); AST 27 U/L (17-59); Albumin 4.6 g/dL (3.5-5.0); Alkaline Phosphatase 73 U/L (38-126); Amylase 45 U/L (30-110); Anion Gap 11 mmol/L; Blood Urea Nitrogen 19 mg/dL (9-20); Calcium 9.8 mg/dL (8.4-10.2); Carbon Dioxide 24 mmol/L (22-30); Chloride 105 mmol/L (98-107); Glucose 103 mg/dL (74-99); Lipase 44 U/L (23-300); Potassium 4.7 mmol/L (3.5-5.1); Sodium 140 mmol/L (137-145); Total Bilirubin 0.6 mg/dL (0.2-1.3); Total Protein 7.7 g/dL (6.3-8.2)
[2018-08-19 03:42] VITALS: BP 119/71; PULSE 112; TEMP 98.9
[2018-08-19] MEDS ORDERED: FAMOTIDINE 20 MG TAB PO SCH (09:00)
== END 2018-08-19 03:42 | disposition home or self-care (01) ==
LOC: EC 23:39
DX: R07.89 Other chest pain (principal); R00.2 Palpitations; I10 Essential (primary) hypertension; Z87.891 Personal history of nicotine dependence; Z91.048 Other nonmedicinal substance allergy status; Z79.899 Other long term (current) drug therapy
CPT/HCPCS: 36415; 71046; 80053; 82150; 83690; 84484; 85025; 85379; 93005; 99285

== ENCOUNTER 2018-10-14 17:41 | Observation (INO) | payer BC ==
[2018-10-14] MEDS ORDERED: SODIUM CHLORIDE 0.9% 1,000 ML IV STA ×2 (17:53→18:21)
[2018-10-14] MEDS ORDERED: MORPHINE SULFATE/PF 10MG/10ML VL IVP PRN (18:21)
--- NOTE | 2018-10-14 18:21 | ED ---
General Adult HPI - General Chief complaint: Chest Pain Stated complaint: chest pain/high heart rate Time Seen by Provider: 10/14/18 17:51 Source: patient Mode of arrival: ambulatory Limitations: no limitations - Related Data Home Medications Medication Instructions Recorded Confirmed Lisinopril [Prinivil] 40 mg PO QAM 12/25/17 10/14/18 Aspirin [Adult Low Dose Aspirin EC] 81 mg PO HS 10/14/18 10/14/18 Allergies Allergy/AdvReac Type Severity Reaction Status Date / Time adhesive tape Allergy Rash/Hives Verified 10/14/18 17:53 Review of Systems ROS Statement: Those systems with pertinent positive or pertinent negative responses have been documented in the HPI. ROS Other: All systems not noted in ROS Statement are negative. Past Medical History Past Medical History: Hypertension History of Any Multi-Drug Resistant Organisms: None Reported Past Surgical History: No Surgical Hx Reported Additional Past Surgical History / Comment(s): Vasectomy, colonoscopy, Past Psychological History: No Psychological Hx Reported Smoking Status: Former smoker Past Alcohol Use History: Occasional Past Drug Use History: None Reported General Exam Limitations: no limitations Course Vital Signs 10/14/18 10/14/18 10/14/18 17:46 19:22 20:20 Temperature 98.2 F Pulse Rate 104 H 92 84 Respiratory 18 18 18 Rate Blood Pressure 170/99 121/71 125/77 O2 Sat by Pulse 99 96 97 Oximetry Medical Decision Making - Medical Decision Making Dictation was produced using [employer] dictation software. please excuse any grammatical, word or spelling errors. Chief Complaint: 33-year-old male presents with chest pain and tachycardia. History of Present Illness: She is 33-year-old male. He reports that he's been having multiple episodes of chest pain and severe tachycardia. He states that when he exerts himself to a minimal extent his heart rate gets really fast. Patient has affected and a heart rate monitor that he was daily. 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 States that during that time he experienced some chest pain. Patient has been evaluated by software architect before. He was told that he was fine. No further testing was done for this patient. Patient feels okay now. He reports that his symptoms have been getting worse and more frequent over the last couple weeks. At rest patient denies any symptoms. The ROS documented in this emergency department record has been reviewed and confirmed by me. Those systems with pertinent positive or negative responses have been documented in the HPI. All other systems are other negative and/or noncontributory. PHYSICAL EXAM: General Impression: Alert and oriented x3, not in acute distress HEENT: Normocephalic atraumatic, extra-ocular movements intact, pupils equal and reactive to light bilaterally, mucous membranes moist. Cardiovascular: Heart regular rate and rhythm, S1&S2 audible, no murmurs, rubs or gallops Chest: Lungs clear to auscultation bilaterally, no rhonchi, no wheeze, no rales Abdomen: Bowel sounds present, abdomen soft, non-tender, non-distended, no organomegaly Musculoskeletal: Pulses present and equal in all extremities, no peripheral edema Motor: Power 5/5 bilaterally, no focal deficits noted Neurological: CN II-XII grossly intact, no focal motor or sensory deficits noted Skin: Intact with no visualized rashes Psych: Normal affect and mood ED course: 33-year-old male presents with episode of tachycardia and chest pain. Upon arrival shows heart rate of 104, blood pressure 170/99, worse vital signs within acceptable limits. EKG suspicious for delta slurring upstroke of the QRS wave. Patient denies any symptoms of pulmonary emboli or deep venous thrombosis.Laboratory evaluation shows mild leukocytosis of 11.2 likely secondary to stress. Coag panel unremarkable. Metabolic panel and cardiac enzymes negative. Chest x-ray is within acceptable limits. Patient's clinical presentation when taken in context of his EKGs concerning for WPW versus dysrhythmia. Patient to be admitted to observation with cardiac monitoring and consultation to electrophysiology. EKG interpretation: Ventricular rate 106, sinus tachycardia,. 166, Q 76, QTC 446. No GA prolongation, no QTC prolongation, no ST or T-wave changes noted. - Lab Data Result diagrams: 10/14/18 18:15 10/14/18 18:15 Lab Results 10/14/18 10/14/18 10/14/18 Range/Units 18:15 18:15 18:15 WBC 11.2 H (3.8-10.6) k/uL RBC 4.99 (4.30-5.90) m/uL Hgb 14.1 (13.0-17.5) gm/dL Hct 43.1 (39.0-53.0) % MCV 86.5 (80.0-100.0) fL MCH 28.3 (25.0-35.0) pg MCHC 32.8 (31.0-37.0) g/dL RDW 13.1 (11.5-15.5) % Plt Count 286 (150-450) k/uL Neutrophils % 58 % Lymphocytes % 29 % Monocytes % 7 % Eosinophils % 3 % Basophils % 0 % Neutrophils # 6.5 (1.3-7.7) k/uL Lymphocytes # 3.3 (1.0-4.8) k/uL Monocytes # 0.8 (0-1.0) k/uL Eosinophils # 0.4 (0-0.7) k/uL Basophils # 0.1 (0-0.2) k/uL PT 10.5 (9.0-12.0) sec INR 1.0 (<1.2) Sodium 141 (137-145) mmol/L Potassium 3.7 (3.5-5.1) mmol/L Chloride 106 (98-107) mmol/L Carbon Dioxide 24 (22-30) mmol/L Anion Gap 11 mmol/L BUN 15 (9-20) mg/dL Creatinine 0.84 (0.66-1.25) mg/dL Est GFR (CKD-EPI)AfAm >90 (>60 ml/min/1.73 sqM) Est GFR (CKD-EPI)NonAf >90 (>60 ml/min/1.73 sqM) Glucose 119 H (74-99) mg/dL Calcium 9.5 (8.4-10.2) mg/dL Magnesium 2.1 (1.6-2.3) mg/dL Troponin I (0.000-0.034) ng/mL 10/14/18 Range/Units 18:15 WBC (3.8-10.6) k/uL RBC (4.30-5.90) m/uL Hgb (13.0-17.5) gm/dL Hct (39.0-53.0) % MCV (80.0-100.0) fL MCH (25.0-35.0) pg MCHC (31.0-37.0) g/dL RDW (11.5-15.5) % Plt Count (150-450) k/uL Neutrophils % % Lymphocytes % % Monocytes % % Eosinophils % % Basophils % % Neutrophils # (1.3-7.7) k/uL Lymphocytes # (1.0-4.8) k/uL Monocytes # (0-1.0) k/uL Eosinophils # (0-0.7) k/uL Basophils # (0-0.2) k/uL PT (9.0-12.0) sec INR (<1.2) Sodium (137-145) mmol/L Potassium (3.5-5.1) mmol/L Chloride (98-107) mmol/L Carbon Dioxide (22-30) mmol/L Anion Gap mmol/L BUN (9-20) mg/dL Creatinine (0.66-1.25) mg/dL Est GFR (CKD-EPI)AfAm (>60 ml/min/1.73 sqM) Est GFR (CKD-EPI)NonAf (>60 ml/min/1.73 sqM) Glucose (74-99) mg/dL Calcium (8.4-10.2) mg/dL Magnesium (1.6-2.3) mg/dL Troponin I <0.012 (0.000-0.034) ng/mL Disposition Clinical Impression: Tachyarrhythmia Disposition: ADMITTED IP TO THIS HOSP Condition: Fair Referrals: Akash Sim MD [Primary Care Provider] - 1-2 days Decision Time: 20:59
--- NOTE | 2018-10-14 19:06 | XR ---
EXAMINATION TYPE: XR chest 2V DATE OF EXAM: 10/14/2018 COMPARISON: Prior chest x-ray 08/19/2018 HISTORY: Tachycardia, pain TECHNIQUE: Frontal and lateral views of the chest are obtained. FINDINGS: There is no focal air space opacity, pleural effusion, or pneumothorax seen. The cardiac silhouette size is within normal limits. The osseous structures are intact. IMPRESSION: No acute cardiopulmonary process.
[2018-10-14 20:14] LABS: Basophils # (A) 0.1 k/uL (0-0.2); Basophils % (A) 0 %; Eosinophils # (A) 0.4 k/uL (0-0.7); Eosinophils % (A) 3 %; HCT 43.1 % (39.0-53.0); HGB 14.1 gm/dL (13.0-17.5); Lymphocytes # (A) 3.3 k/uL (1.0-4.8); Lymphocytes % (A) 29 %; MCH 28.3 pg (25.0-35.0); MCHC 32.8 g/dL (31.0-37.0); MCV 86.5 fL (80.0-100.0); Mean Platelet Volume 7.4; Monocytes # (A) 0.8 k/uL (0-1.0); Monocytes % (A) 7 %; Neutrophils # (A) 6.5 k/uL (1.3-7.7); Neutrophils % (A) 58 %; Platelet Count 286 k/uL (150-450); RBC 4.99 m/uL (4.30-5.90); RDW 13.1 % (11.5-15.5); WBC 11.2 k/uL (3.8-10.6)
[2018-10-14 20:18] LABS: Prothrombin Time 10.5 sec (9.0-12.0)
[2018-10-14 20:21] LABS: Anion Gap 11 mmol/L; Blood Urea Nitrogen 15 mg/dL (9-20); Calcium 9.5 mg/dL (8.4-10.2); Carbon Dioxide 24 mmol/L (22-30); Chloride 106 mmol/L (98-107); Glucose 119 mg/dL (74-99); Magnesium 2.1 mg/dL (1.6-2.3); Potassium 3.7 mmol/L (3.5-5.1); Sodium 141 mmol/L (137-145)
[2018-10-14] MEDS ORDERED: NALOXONE 0.4 MG/ML 1 ML VIAL IV PRN (20:51)
[2018-10-14] MEDS ORDERED: ACETAMINOPHEN TAB 325 MG TAB PO PRN (20:51)
[2018-10-14] MEDS: SODIUM CHLORIDE 0.9% 1,000 ML IV SCH (21:02)
[2018-10-15 02:02] VITALS: BMI 33.3
--- NOTE | 2018-10-15 10:51 | P.CRDCN ---
History of Present Illness Consult date: 10/15/18 Chief complaint: Heart racing History of present illness: This is a pleasant 33-year-old gentleman who sees Dr. chiang in the office on regular basis with a past medical history significant for hypertension presented to the emergency room for further evaluation of elevated heart rate. The patient was in his usual state of health until yesterday when he noticed that his heart rate has been "jumping up". He noticed that when he was trying to exercise on the treadmill and even before he started walking he noticed that his heart rate was around 200 bpm confirmed by the treadmill machine as well as by the fit bit he was wearing. He did not have any symptoms of heart racing or fluttering, dizziness or lightheadedness, or syncope. No chest pain or chest discomfort. Because of that and because the heart rate was very high he decided to come to the emergency room because he was quite anxious and worried. On the way to the emergency room he did have another episode of elevated heart rate. In the hospital, he has been maintaining normal sinus mechanism with few episodes of heart rate around 100 beats per minutes. He it was sinus tachycardia. I did review the workup. The initial EKG showed sinus rhythm. The subsequent EKG showed what it seems to be possible preexcitation. The patient does have hypertension. No other comorbidities. He is not aware of any prior thyroid disorder. He does smoke occasionally. No significant family history of coronary artery disease. Past Medical History Past Medical History: Hypertension History of Any Multi-Drug Resistant Organisms: None Reported Past Surgical History: No Surgical Hx Reported Additional Past Surgical History / Comment(s): Vasectomy, colonoscopy, Past Anesthesia/Blood Transfusion Reactions: No Reported Reaction Past Psychological History: No Psychological Hx Reported Smoking Status: Never smoker Past Alcohol Use History: Occasional Past Drug Use History: None Reported Medications and Allergies Home Medications Medication Instructions Recorded Confirmed Type Lisinopril [Prinivil] 40 mg PO QAM 12/25/17 10/14/18 History Aspirin [Adult Low Dose Aspirin EC] 81 mg PO HS 10/14/18 10/14/18 History Allergies Allergy/AdvReac Type Severity Reaction Status Date / Time adhesive tape Allergy Rash/Hives Verified 10/14/18 17:53 Physical Exam Vitals: Vital Signs Temp Pulse Pulse Resp BP BP Pulse Ox 10/15/18 08:05 98.5 F 79 16 134/77 99 01/28/19 04:00 98.3 F 71 16 121/75 98 10/15/18 03:39 81 16 10/15/18 00:00 98.1 F 81 16 127/71 95 10/14/18 22:23 98.0 F 85 16 123/74 98 10/14/18 21:56 95 18 119/79 98 10/14/18 21:19 80 18 114/78 97 10/14/18 21:16 98.6 F 80 16 132/83 95 10/14/18 20:20 84 18 125/77 97 10/14/18 19:22 92 18 121/71 96 10/14/18 17:46 98.2 F 104 H 18 170/99 99 Intake and Output 10/14/18 10/15/18 10/15/18 22:59 06:59 14:59 Intake Total 120 Balance 120 Intake: Intake, IV Titration 120 Amount Sodium Chloride 0.9% 1, 120 000 ml @ 20 mls/hr IV . Q24H [facility] Rx#:[id number] Other: Voiding Method Toilet # Voids 2 Weight 106.594 kg 108.6 kg - Constitutional General appearance: no acute distress - Respiratory Respiratory: bilateral: CTA - Cardiovascular Rhythm: regular Heart sounds: normal: S1, S2 Results 10/14/18 18:15 10/14/18 18:15 Cardiac Enzymes 10/14/18 Range/Units 18:15 Troponin I <0.012 (0.000-0.034) ng/mL Coagulation 10/14/18 Range/Units 18:15 PT 10.5 (9.0-12.0) sec CBC 10/14/18 Range/Units 18:15 WBC 11.2 H (3.8-10.6) k/uL RBC 4.99 (4.30-5.90) m/uL Hgb 14.1 (13.0-17.5) gm/dL Hct 43.1 (39.0-53.0) % Plt Count 286 (150-450) k/uL Comprehensive Metabolic Panel 10/14/18 Range/Units 18:15 Sodium 141 (137-145) mmol/L Potassium 3.7 (3.5-5.1) mmol/L Chloride 106 (98-107) mmol/L Carbon Dioxide 24 (22-30) mmol/L BUN 15 (9-20) mg/dL Creatinine 0.84 (0.66-1.25) mg/dL Glucose 119 H (74-99) mg/dL Calcium 9.5 (8.4-10.2) mg/dL Current Medications Generic Name Dose Route Start Last Admin Trade Name Freq PRN Reason Stop Dose Admin Acetaminophen 650 mg 10/14/18 20:51 Tylenol Tab PO Q6HR PRN Mild Pain or Fever > 100.5 Sodium Chloride 1,000 mls @ 20 mls/hr 10/14/18 21:00 10/14/18 21:02 Saline 0.9% IV 20 mls/hr .Q24H [facility] Administration Naloxone HCl 0.2 mg 10/14/18 20:51 Narcan IV Q2M PRN Opioid Reversal Intake and Output 10/14/18 10/15/18 10/15/18 22:59 06:59 14:59 Intake Total 120 Balance 120 Intake: Intake, IV Titration 120 Amount Sodium Chloride 0.9% 1, 120 000 ml @ 20 mls/hr IV . Q24H [facility] Rx#:[id number] Other: Voiding Method Toilet # Voids 2 Weight 106.594 kg 108.6 kg 10/14/18 18:15 10/14/18 18:15 Assessment and Plan Assessment: Assessment #1 tachycardia #2 preexcitation #3 hypertension Plan #1 EP consult. The patient might benefit from EP study #2 rule out thyroid disorder. TSH and free T4 #3 an echocardiogram was Doppler #4 follow-up with the patient Thank you for allowing us participate in his care
--- NOTE | 2018-10-15 18:48 | ECHOF ---
Referral Reason:tachycardia MEASUREMENTS -------- HEIGHT: 162.6 cm WEIGHT: 108.4 kg BP: 134/77 IVSd: 1.2 cm (0.6 - 1.1) LVIDd: 4.3 cm (3.9 - 5.3) LVPWd: 1.3 cm (0.6 - 1.1) IVSs: 1.4 cm LVIDs: 3.5 cm LVPWs: 1.2 cm LA Diam: 3.5 cm (2.7 - 3.8) RVIDd: 3.3 cm (< 3.3) LAESV Index (A-L): 27.65 ml/m Ao Diam: 3.6 cm (2.0 - 3.7) AV Cusp: 2.3 cm (1.5 - 2.6) EPSS: 0.5 cm MV E Derek: 0.99 m/s MV DecT: 184 ms MV A Derek: 0.57 m/s MV E/A Ratio: 1.75 RAP: 5.00 mmHg RVSP: 23.43 mmHg MV EF SLOPE: 165.50 mm/s (70 - 150) MV EXCURSION: 25.34 mm (> 18.000) FINDINGS -------- Sinus rhythm. This was a technically adequate study. LV size, wall thickness and systolic function are normal, with an EF greater than 55%. The left casi tricular size is normal. The right ventricle is normal in size. The left atrial size is normal. The right atrial size is normal. The aortic valve is trileaflet, and appears structurally normal. No aortic stenosis or regurgitation. Mild mitral annular calcification present. Mild mitral regurgitation is present. Mild tricuspid regurgitation present. There is no evidence of pulmonary hypertension. The right v entricular systolic pressure, as measured by Doppler, is 23.43mmHg. The aortic root size is normal. There is no pericardial effusion. CONCLUSIONS -------- 1. LV size, wall thickness and systolic function are normal, with an EF greater than 55%. 2. The left ventricular size is normal. 3. The right ventricle is normal in size. 4. The left atrial size is normal. 5. The right atrial size is normal. 6. The aortic valve is trileaflet, and appears structurally normal. No aortic stenosis or regurgitati on. 7. Mild mitral annular calcification present. 8. Mild mitral regurgitation is present. 9. Mild tricuspid regurgitation present. 10. There is no evidence of pulmonary hypertension. 11. The right ventricular systolic pressure, as measured by Doppler, is 23.43mmHg. 12. The aortic root size is normal. 13. There is no pericardial effusion. FOOD SCIENCE TECHNICIAN: Valencia Ann RDCS
--- NOTE | 2018-10-15 22:17 | P.HPIM ---
History of Present Illness H&P Date: 10/15/18 Chief Complaint: Rapid heart rate This is a history and physical on a 33-year-old white male who for the last several weeks has been complaining of significant heart rate variability. When he exercises mildly, his heart rate goes to almost 80% of maximum heart rate without significant prodding. Evaluation in the emergency room did show significant tachycardia and possible Ptpuj-[id number]-Rvppg syndrome. He is admitted for observation for this. Initial EKG has been evaluated. Cardiology is now consulted. The patient has no dizziness headache or loss of consciousness/chest pressure. No overt palpitations stated. He does wear a exercise monitoring device which does show tachyarrhythmia and low heart rate at the same time. He Exercise is only minimally. But he is trying to lose weight and start getting an "better shape." Review of Systems Constitutional: Denies chills, Denies fever Eyes: denies blurred vision, denies pain Ears, nose, mouth and throat: Denies headache, Denies sore throat Cardiovascular: Reports as per HPI Respiratory: Denies cough Gastrointestinal: Denies abdominal pain, Denies diarrhea, Denies nausea, Denies vomiting Musculoskeletal: Denies myalgias Integumentary: Denies pruritus, Denies rash Past Medical History Past Medical History: Hypertension History of Any Multi-Drug Resistant Organisms: None Reported Past Surgical History: No Surgical Hx Reported Additional Past Surgical History / Comment(s): Vasectomy, colonoscopy, Past Anesthesia/Blood Transfusion Reactions: No Reported Reaction Past Psychological History: No Psychological Hx Reported Smoking Status: Never smoker Past Alcohol Use History: Occasional Past Drug Use History: None Reported Medications and Allergies Home Medications Medication Instructions Recorded Confirmed Type Lisinopril [Prinivil] 40 mg PO QAM 12/25/17 10/14/18 History Aspirin [Adult Low Dose Aspirin EC] 81 mg PO HS 10/14/18 10/14/18 History Allergies Allergy/AdvReac Type Severity Reaction Status Date / Time adhesive tape Allergy Rash/Hives Verified 10/14/18 17:53 Physical Exam Vitals: Vital Signs Temp Pulse Pulse Resp BP BP Pulse Ox 10/15/18 20:00 98.2 F 85 16 149/73 97 10/15/18 15:50 88 16 127/75 98 10/15/18 11:40 65 16 131/76 98 10/15/18 08:05 98.5 F 79 16 134/77 99 10/15/18 04:00 98.3 F 71 16 121/75 98 10/15/18 03:39 81 16 10/15/18 00:00 98.1 F 81 16 127/71 95 10/14/18 22:23 98.0 F 85 16 123/74 98 Intake and Output 10/15/18 10/15/18 10/15/18 06:59 14:59 22:59 Intake Total 120 240 480 Balance 120 240 480 Intake: Intake, IV Titration 120 Amount Sodium Chloride 0.9% 1, 120 000 ml @ 20 mls/hr IV . Q24H [facility] Rx#:[id number] Oral 240 480 Other: Voiding Method Toilet Toilet # Voids 2 2 2 Weight 108.6 kg - Constitutional General appearance: no acute distress - EENT Eyes: EOMI - Neck Neck: no lymphadenopathy - Respiratory Respiratory: bilateral: CTA - Cardiovascular Rhythm: regular Heart sounds: normal: S1, S2 Abnormal Heart Sounds: no S3 Gallop - Gastrointestinal General gastrointestinal: soft, no tenderness Localized gastrointestinal: mass: diffuse, RUQ, LUQ, RLQ, LLQ, epigastric periumbilical, suprabubic, midline - Neurologic Neurologic: CNII-XII intact Results CBC & Chem 7: 10/14/18 18:15 10/14/18 18:15 Thrombosis Risk Factor Assmnt - Choose All That Apply Any of the Below Risk Factors Present?: Yes Each Factor Represents 1 point: Obesity (BMI >25) Other Risk Factors: No Thrombosis Risk Factor Assessment Total Risk Factor Score: 1 Thrombosis Risk Factor Assessment Level: Low Risk Assessment and Plan (1) Tachyarrhythmia Current Visit: Yes Status: Acute Code(s): R00.0 - TACHYCARDIA, UNSPECIFIED SNOMED Code(s): 7567769 Plan: Rule out WPW. Continue monitoring heart rhythm/heart rate. Appreciate cardiology input. We will continue to follow. Consider thyroid evaluation if no better. Time with Patient: Greater than 30
[2018-10-15] MEDS: SODIUM CHLORIDE 0.9% 1,000 ML IV SCH (22:27)
[2018-10-16] MEDS ORDERED: LISINOPRIL 20 MG TAB PO SCH (09:00)
[2018-10-16] MEDS ORDERED: ASPIRIN 81 MG PO SCH (09:00)
--- NOTE | 2018-10-16 09:31 | P.PN ---
Subjective Progress Note Date: 10/16/18 Principal diagnosis: Heart racing/SVT This is a pleasant 33-year-old gentleman who sees Dr. duran in the office on regular basis with a past medical history significant for hypertension presented to the emergency room for further evaluation of elevated heart rate. The patient was in his usual state of health until yesterday when he noticed that his heart rate has been "jumping up". He noticed that when he was trying to exercise on the treadmill and even before he started walking he noticed that his heart rate was around 200 bpm confirmed by the treadmill machine as well as by the fit bit he was wearing. He did not have any symptoms of heart racing or fluttering, dizziness or lightheadedness, or syncope. No chest pain or chest discomfort. Because of that and because the heart rate was very high he decided to come to the emergency room because he was quite anxious and worried. On the way to the emergency room he did have another episode of elevated heart rate. In the hospital, he has been maintaining normal sinus mechanism with few episodes of heart rate around 100 beats per minutes. He it was sinus tachycardia. I did review the workup. The initial EKG showed sinus rhythm. The subsequent EKG showed what it seems to be possible preexcitation. The patient underwent an echocardiogram and that revealed normal LV function. I'll follow-up with him today, October [id number], he is asymptomatic. He is in process to have an EP study later on today by Dr. Duran. Objective - Vital Signs Vital signs: Vital Signs Temp 97.3 F L 10/16/18 08:10 Pulse 72 10/16/18 08:10 Resp 18 10/16/18 08:10 BP 132/69 10/16/18 08:10 Pulse Ox 97 10/16/18 08:10 Intake & Output 10/15/18 10/16/18 10/16/18 18:59 06:59 18:59 Intake Total 480 240 Balance 480 240 Weight 106 kg Intake: Oral 480 240 Other: Voiding Method Toilet Toilet # Voids 2 1 - Constitutional General appearance: Present: no acute distress - Respiratory Respiratory: bilateral: CTA - Cardiovascular Rhythm: regular Heart sounds: normal: S1, S2 - Labs CBC & Chem 7: 10/14/18 18:15 10/14/18 18:15 Assessment and Plan Assessment: Assessment #1 tachycardia #2 preexcitation #3 hypertension Plan #1 the patient is going to have an EP study later on today. Thank you for allowing us participate in his care
[2018-10-16] MEDS ORDERED: VERAPAMIL 40 MG TAB PO SCH (12:00)
--- NOTE | 2018-10-16 15:19 | P.DS ---
Providers Date of admission: 10/14/18 20:59 Attending physician: Akash Sim Consults: 10/14/18 20:56 Consult Physician Routine Consulting Provider: Santana Duran Consult Reason/Comments: wpw vs. dysrhytmia Do you want consulting provider notified?: Yes Primary care physician: Akash Sim - Discharge Diagnosis(es) (1) Tachyarrhythmia Current Visit: Yes Status: Acute Hospital Course: The patient is here essentially for tachyarrhythmia. The patient will be placed on verapamil. Workup was evaluated by cardiology. Echocardiogram was within normal limits. The patient will be discharged in stable condition to follow-up with me in 1 week. Patient Condition at Discharge: Fair Plan - Discharge Summary Discharge Rx Participant: No New Discharge Prescriptions: No Action Lisinopril [Prinivil] 40 mg PO QAM Aspirin [Adult Low Dose Aspirin EC] 81 mg PO HS Discharge Medication List Lisinopril [Prinivil] 40 mg PO QAM 12/25/17 [History] Aspirin [Adult Low Dose Aspirin EC] 81 mg PO HS 10/14/18 [History] Follow up Appointment(s)/Referral(s): Akahs Sim MD [Primary Care Provider] - 1 Week (Monday)
[2018-10-16 15:31] VITALS: BP 132/77; PULSE 101; RESP 18; TEMP 98.7
== END 2018-10-16 16:42 | disposition home or self-care (01) ==
LOC: EC 17:41 → INTOOBSV 20:59 → 3SCARD 20:59
PROVIDERS: ADMIT Hospitalist; ATTEND Family Medicine
DX: I47.1 Supraventricular tachycardia (principal); R07.89 Other chest pain; I45.6 Pre-excitation syndrome; D72.829 Elevated white blood cell count, unspecified; F17.200 Nicotine dependence, unspecified, uncomplicated; I10 Essential (primary) hypertension; Z79.82 Long term (current) use of aspirin; Z79.899 Other long term (current) drug therapy; Z91.048 Other nonmedicinal substance allergy status
CPT/HCPCS: 96361 ×3; 96360; 99285; 36415; 93005; 93306; 80048; 83735; 84443; 84484; 85025; 85610; 71046; G0378 ×3

== ENCOUNTER → 2018-10-31 | Outpatient (CLI) | payer BC ==
[2018-10-31 23:14] LABS: LDL Cholesterol,Calculated 107.4 mg/dL (0.0-131.0); VLDL Calculation 41.6 mg/dL (5.00-40.00)
== END | disposition home or self-care (01) ==
LOC: LABWHC1 16:00
PROVIDERS: ATTEND Nurse Practitioner Adult Health
DX: D35.00 Benign neoplasm of unspecified adrenal gland (principal); E78.5 Hyperlipidemia, unspecified
CPT/HCPCS: 36415; 80061; 83835

== ENCOUNTER 2018-12-20 20:47 | Emergency (ER) | payer BC, OTHER ==
[2018-12-20 21:16] VITALS: BP 143/87; PULSE 74; RESP 18; TEMP 98.5
== END 2018-12-20 22:08 ==
LOC: EC 20:47
DX: Z02.89 Encounter for other administrative examinations (principal)

== ENCOUNTER → 2019-06-05 | Outpatient (CLI) | payer BC ==
--- NOTE | 2019-06-06 09:04 | US ---
EXAMINATION TYPE: US scrotum with doppler. Grayscale and color Doppler Duplex imaging performed of t john scrotum. DATE OF EXAM: 06/05/2019 COMPARISON: US 2011 CLINICAL HISTORY: Left groin pain R10.31. Occasional left testicular pain x couple months EXAM MEASUREMENTS: TESTICLES: Right Testicle: 4.7 x 2.5 x 3.7 cm Left Testicle: 4.8 x 2.3 x 3.2 cm EPIDIDYMIS HEAD: Right Epididymis: 1.8 x 0.9 x 1.5 cm Left Epididymis: 1.1 x 1.2 x 1.8 cm Doppler performed to assess for testicular vascularity; good bilateral color flow and waveforms are s een. There is no evidence of testicular torsion. Presence of hydroceles: right 2.3cm Presence of varicoceles: no IMPRESSION: 1. Small Right-sided hydrocele noted.
== END | disposition home or self-care (01) ==
LOC: RADUSWWP 16:41
PROVIDERS: ATTEND Family Medicine
DX: N43.3 Hydrocele, unspecified (principal); R10.31 Right lower quadrant pain
CPT/HCPCS: 76870; 93975

== ENCOUNTER 2021-07-27 19:42 | Inpatient (IN) | payer BC ==
[2021-07-27] MEDS ORDERED: VANCOMYCIN IV PER PHARMACY 1 EACH MISC MISCELLANE PRN (22:23)
[2021-07-27] MEDS ORDERED: SODIUM CHLORIDE 0.9% 1,000 ML IV STA ×2 (22:23)
[2021-07-27] MEDS ORDERED: ACETAMINOPHEN TAB 500 MG TAB PO STA (22:24)
--- NOTE | 2021-07-27 22:32 | ED ---
Fever HPI - General Chief Complaint: Fever Stated Complaint: Fever, infection Time Seen by Provider: 07/27/21 21:50 Source: patient Mode of arrival: ambulatory Limitations: no limitations - Related Data Home Medications Medication Instructions Recorded Confirmed Verapamil Sr [Isoptin Sr] 120 mg PO HS 07/27/21 07/27/21 lisinopriL 40 mg PO DAILY 07/27/21 07/27/21 Allergies Allergy/AdvReac Type Severity Reaction Status Date / Time adhesive tape Allergy Rash/Hives Verified 07/27/21 22:40 Review of Systems ROS Statement: Those systems with pertinent positive or pertinent negative responses have been documented in the HPI. ROS Other: All systems not noted in ROS Statement are negative. Past Medical History Past Medical History: Hypertension History of Any Multi-Drug Resistant Organisms: None Reported Past Surgical History: No Surgical Hx Reported Additional Past Surgical History / Comment(s): Vasectomy, colonoscopy, Past Anesthesia/Blood Transfusion Reactions: No Reported Reaction Past Psychological History: No Psychological Hx Reported Past Alcohol Use History: Occasional Past Drug Use History: None Reported General Exam Limitations: no limitations Course Vital Signs 07/27/21 07/27/21 20:12 23:32 Temperature 100.8 F H Pulse Rate 122 H 87 Respiratory 20 20 Rate Blood Pressure 140/76 117/78 O2 Sat by Pulse 98 97 Oximetry Medical Decision Making - Lab Data Result diagrams: 07/27/21 23:35 07/27/21 23:35 Lab Results 07/27/21 07/27/21 Range/Units 23:35 23:35 WBC 12.4 H (3.8-10.6) k/uL RBC 4.59 (4.30-5.90) m/uL Hgb 13.9 (13.0-17.5) gm/dL Hct 40.6 (39.0-53.0) % MCV 88.5 (80.0-100.0) fL MCH 30.3 (25.0-35.0) pg MCHC 34.3 (31.0-37.0) g/dL RDW 12.5 (11.5-15.5) % Plt Count (150-450) k/uL MPV 9.1 Neutrophils % 69 % Lymphocytes % 18 % Monocytes % 8 % Eosinophils % 3 % Basophils % 1 % Neutrophils # 8.6 H (1.3-7.7) k/uL Lymphocytes # 2.2 (1.0-4.8) k/uL Monocytes # 1.0 (0-1.0) k/uL Eosinophils # 0.4 (0-0.7) k/uL Basophils # 0.1 (0-0.2) k/uL Sodium 135 L (137-145) mmol/L Potassium 4.2 (3.5-5.1) mmol/L Chloride 103 (98-107) mmol/L Carbon Dioxide 23 (22-30) mmol/L Anion Gap 9 mmol/L BUN 15 (9-20) mg/dL Creatinine 0.84 (0.66-1.25) mg/dL Est GFR (CKD-EPI)AfAm >90 (>60 ml/min/1.73 sqM) Est GFR (CKD-EPI)NonAf >90 (>60 ml/min/1.73 sqM) Glucose 129 H (74-99) mg/dL Calcium 8.9 (8.4-10.2) mg/dL Total Bilirubin 0.8 (0.2-1.3) mg/dL AST 41 (17-59) U/L ALT 24 (4-49) U/L Alkaline Phosphatase 53 (38-126) U/L C-Reactive Protein 5.6 H (<1.0) mg/dL Total Protein 7.1 (6.3-8.2) g/dL Albumin 4.1 (3.5-5.0) g/dL Amylase 54 (30-110) U/L Lipase 48 (23-300) U/L Disposition Clinical Impression: Cellulitis, umbilical, Fever Disposition: ADMITTED IP TO THIS HOSP Condition: Good Instructions (If sedation given, give patient instructions): Fever in Adults (ED) Is patient prescribed a controlled substance at d/c from ED?: No Referrals: Akash Sim MD [Primary Care Provider] - 1-2 days
[2021-07-27] MEDS ORDERED: IBUPROFEN IV 800 MG in SODIUM CHLORIDE 0.9% 250 ML IV ONE (22:45)
[2021-07-27] MEDS ORDERED: VANCOMYCIN 1,750 MG in SODIUM CHLORIDE 0.9% 500 ML 500 ML IVPB ONE (23:00)
[2021-07-27 23:42] LABS: Basophils # (A) 0.1 k/uL (0-0.2); Basophils % (A) 1 %; Eosinophils # (A) 0.4 k/uL (0-0.7); Eosinophils % (A) 3 %; HCT 40.6 % (39.0-53.0); HGB 13.9 gm/dL (13.0-17.5); Lymphocytes # (A) 2.2 k/uL (1.0-4.8); Lymphocytes % (A) 18 %; MCH 30.3 pg (25.0-35.0); MCHC 34.3 g/dL (31.0-37.0); MCV 88.5 fL (80.0-100.0); Mean Platelet Volume 9.1; Monocytes % (A) 8 %; Neutrophils # (A) 8.6 k/uL (1.3-7.7); Neutrophils % (A) 69 %; RBC 4.59 m/uL (4.30-5.90); RDW 12.5 % (11.5-15.5); WBC 12.4 k/uL (3.8-10.6)
[2021-07-28] LABS: ALT 24 U/L (4-49); AST 41 U/L (17-59); African American GFR (CKD) >90 (>60 ml/min/1.73 sqM); Albumin 4.1 g/dL (3.5-5.0); Alkaline Phosphatase 53 U/L (38-126); Amylase 54 U/L (30-110); Anion Gap 9 mmol/L; Blood Urea Nitrogen 15 mg/dL (9-20); C Reactive Protein 5.6 mg/dL (<1.0); Calcium 8.9 mg/dL (8.4-10.2); Carbon Dioxide 23 mmol/L (22-30); Chloride 103 mmol/L (98-107); Glucose 129 mg/dL (74-99); Lipase 48 U/L (23-300); Non-African American GFR(CKD) >90 (>60 ml/min/1.73 sqM); Sodium 135 mmol/L (137-145); Total Bilirubin 0.8 mg/dL (0.2-1.3); Total Protein 7.1 g/dL (6.3-8.2)
[2021-07-28 00:08] LABS: Potassium 4.2 mmol/L (3.5-5.1)
--- NOTE | 2021-07-28 00:56 | CT ---
EXAMINATION TYPE: CT abdomen pelvis w con DATE OF EXAM: 07/28/2021 COMPARISON: None HISTORY: umbilical infection CT DLP: 1750.5 mGycm Automated exposure control for dose reduction was used. CONTRAST: Performed with IV Contrast, patient injected with 100 mL of Isovue 300. Images obtained from the diaphragm to the floor the pelvis with IV contrast. Lung bases are clear of consolidation. There is no pleural effusion. There are small calcified granul oscar left lower lobe. Heart size is normal. There is no pericardial effusion. Liver spleen stomach pancreas gallbladder appear normal. The bile ducts are not dilated. There is no adrenal mass. Kidneys have normal size and contour. There is no hydronephrosis. Ureters a re not dilated. Delayed images show normal renal excretion. There is no retroperitoneal adenopathy. B ladder distends smoothly. There is no inguinal hernia. There are a few small bilateral inguinal lymph nodes. There is no evidence of a pelvic mass. There is no free fluid in the pelvis. Appendix is posterior and appears normal. There is no mesenteric edema. There is no ascites or free a ir. There is no bowel obstruction. There is subcutaneous edema around the umbilicus that measures up to 1 cm in thickness. There is smal l fat-containing umbilical hernia that measures 3 x 1.5 cm. There is no drainable fluid collection. The lumbar vertebra appear intact. There is no compression fracture. Bony pelvis is intact. The hip j oints are intact. IMPRESSION: Periumbilical edema consistent with cellulitis. No abscess identified. Small umbilical fat-containing hernia. Normal appendix.
[2021-07-28] MEDS ORDERED: MUPIROCIN 2% OINT 22 GM TUBE TOPICAL ONE (01:00)
[2021-07-28] MEDS ORDERED: MORPHINE SULFATE 4 MG/ML SYRINGE IV PRN (01:39)
[2021-07-28] MEDS ORDERED: NALOXONE 0.4 MG/ML 1 ML VIAL IV PRN (01:39)
[2021-07-28] MEDS ORDERED: ONDANSETRON 4 MG/2 ML VIAL IVP PRN (01:39)
[2021-07-28] MEDS ORDERED: LORazepam 2 MG/ML INJ IV PRN (01:39)
[2021-07-28] MEDS: SODIUM CHLORIDE 0.9% 1,000 ML IV SCH ×3 (03:06→17:10)
[2021-07-28] MEDS: VANCOMYCIN 1,500 MG in SODIUM CHLORIDE 0.9% 250 ML IVPB SCH ×2 (08:52→18:00)
[2021-07-28] MEDS: lisinopriL 20 MG TAB PO SCH (12:52)
[2021-07-28] MEDS ORDERED: ACETAMINOPHEN TAB 500 MG TAB PO PRN (15:31)
[2021-07-28] MEDS ORDERED: HYDROcodone/APAP 5-325MG 1 EACH TAB PO PRN (15:31)
[2021-07-28] MEDS ORDERED: HYDROmorphone 0.5 MG/0.5 ML SYRINGE IVP PRN (15:31)
[2021-07-28] MEDS: NICOTINE 14MG/24HR PATCH TRANSDERM SCH (16:51)
[2021-07-28] MEDS: AMPICILLIN-SULBACTAM 3 GM in SODIUM CHLORIDE 0.9% 100 ML IVPB SCH ×2 (17:10→20:41)
[2021-07-28 17:29] LABS: Appearance,Urine Clear (Clear); Bilirubin,Urine Negative (Negative); Blood,Urine Negative (Negative); Color,Urine Yellow; Glucose,Urine (UA) Negative (Negative); Ketones,Urine Negative (Negative); Leukocyte Esterase,Urine Negative (Negative); Nitrite,Urine Negative (Negative); PH, Urine 7.5 (5.0-8.0); Protein,Urine Negative (Negative); Specific Gravity,Urine 1.014 (1.001-1.035); Urobilinogen,Urine <2.0 mg/dL (<2.0)
--- NOTE | 2021-07-28 17:31 | HP ---
HISTORY AND PHYSICAL I am covering for Dr. Sim. DATE OF SERVICE: 07/28/2021 CHIEF COMPLAINTS: Fever and abdominal wall infection. HISTORY OF PRESENT ILLNESS: This 36-year-old gentleman with a past medical history of hypertension, history of vasectomy, history of colonoscopy Dr. Sim in the outpatient setting was complaining of pain and swelling of the anterior part of the abdomen for the past several days which is worsening. The patient had some discharge also. The patient had previously multiple episodes of similar discharges from the umbilicus, according to him, which responded to conservative line of treatment. The white count is elevated at 12.4. The patient also had a CT scan of the abdomen and pelvis which I reviewed personally which showed periumbilical edema consistent with cellulitis. No abscess noted. Small umbilical fat-containing hernia was also noted. There is no history of any rigors, chills, headache, loss of consciousness, seizures at this time. PAST MEDICAL HISTORY: History of hypertension, history of vasectomy, colonoscopy, anxiety. HOME MEDICATIONS: Lisinopril, verapamil SR. Doses are reviewed. ALLERGIES: ADHESIVE TAPES. FAMILY HISTORY: No history of heart disease or strokes in the family. SOCIAL HISTORY: History of smoking. Occasional alcohol intake. REVIEW OF SYSTEMS: ENT: No diminished hearing. No diminished vision. CARDIOVASCULAR SYSTEM: No angina, palpitations. RESPIRATORY SYSTEM: No cough, hemoptysis. GI: No nausea, vomiting, diarrhea. : No dysuria. NERVOUS SYSTEM: No numbness, weakness. ALLERGY/IMMUNOLOGY: No asthma or hay fever. MUSCULOSKELETAL: As mentioned earlier. HEMATOLOGY/ONCOLOGY: No history of anemia. ENDOCRINE: No history of diabetes or hypothyroidism. CONSTITUTIONAL: As mentioned earlier. DERMATOLOGY: Negative. RHEUMATOLOGY: Negative. PSYCHIATRY: As mentioned earlier. PHYSICAL EXAMINATION: Patient is alert, oriented x3. Pulse is 80, blood pressure 140/74, respirations 16, temperature 98.3, pulse ox 100% on room air. HEENT: Conjunctivae normal. NECK: No jugular venous distention. CARDIOVASCULAR: S1, S2 muffled. RESPIRATION: Breath sounds diminished at the bases. No rhonchi. No crackles. ABDOMEN: Soft. Obese. Mild diffuse distention as well as significant tenderness and erythema, pain and cellulitis around the umbilicus and periumbilical area present. LEGS: No edema. No swelling. NERVOUS SYSTEM: Higher functions as mentioned earlier. Moves all 4 limbs. No focal motor or sensory deficit. LYMPHATICS: No lymph node palpable in neck, axillae or groin. SKIN: As mentioned earlier. JOINTS: No active deforming arthropathy. LABS: WBC 12.4. Sodium 135. ASSESSMENT: 1. Abdominal wall infection and cellulitis with possibly early sepsis, present on admission. 2. Possible umbilical hernia, infected. 3. Elevated random glucose. 4. Rule out congenital abnormalities related to umbilicus with persistent urachus or ligamentum teres. 5. History of hypertension. 6. History of vasectomy. 7. History of colonoscopy. 8. History of anxiety. 9. History of nicotine dependence. 10.Obesity, body mass index 34. 11.FULL CODE. RECOMMENDATIONS AND DISCUSSION: In this 36-year-old gentleman who presented with multiple complex medical issues, we will monitor the patient closely, continue the current medications, continue symptomatic treatment. Otherwise at this time I recommend broad-spectrum IV antibiotics, infectious and surgical evaluation. Prognosis is guarded because of multiple complex medical issues. Further recommendations to follow. A copy of this dictation is being forwarded to Dr. Sim, who is the primary physician. Otherwise, DVT prophylaxis. See orders for details. Symptomatic treatment also will be provided. MMODL / IJN: [id number] / JOHNNIE
[2021-07-28] MEDS: VERAPAMIL SR 120 MG TABLET.ER PO SCH (20:40)
[2021-07-29] MEDS: VANCOMYCIN 1,500 MG in SODIUM CHLORIDE 0.9% 250 ML IVPB SCH ×3 (00:41→17:43)
[2021-07-29] MEDS: AMPICILLIN-SULBACTAM 3 GM in SODIUM CHLORIDE 0.9% 100 ML IVPB SCH ×4 (03:53→20:28)
[2021-07-29] MEDS ORDERED: VANCOMYCIN TROUGH DUE 1 EACH MISC MISCELLANE ONE (08:00)
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
[2021-07-29] MEDS: lisinopriL 20 MG TAB PO SCH (09:17)
[2021-07-29] MEDS: NICOTINE 14MG/24HR PATCH TRANSDERM SCH (09:18)
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
[2021-07-29 13:11] LABS: African American GFR (CKD) 125.5 (60.0-200.0); Albumin/Globulin Ratio 1.7 (1.60-3.17); Anion Gap 12.1 mmol/L (4.00-12.00); BUN/Creat Ratio 11.96 Ratio (12.00-20.00); Blood Urea Nitrogen 10.8 mg/dL (9.0-27.0); Calcium 8.8 mg/dL (8.7-10.3); Carbon Dioxide 21.2 mmol/L (21.6-31.8); Globulin 2.3 g/dL (1.6-3.3); Non-African American GFR(CKD) 108.3 (60.0-200.0); Total Bilirubin 0.7 mg/dL (0.30-1.20); Total Protein 6.3 g/dL (6.2-8.2)
[2021-07-29 13:22] LABS: Basophils # (A) 0.1 k/uL (0-0.2); Basophils % (A) 1 %; Eosinophils # (A) 0.2 k/uL (0-0.7); Eosinophils % (A) 2 %; HCT 40.8 % (39.0-53.0); HGB 13.5 gm/dL (13.0-17.5); Lymphocytes % (A) 19 %; MCH 30.2 pg (25.0-35.0); MCV 91.3 fL (80.0-100.0); Monocytes # (A) 0.9 k/uL (0-1.0); Monocytes % (A) 8 %; Neutrophils # (A) 7.4 k/uL (1.3-7.7); Neutrophils % (A) 69 %; Platelet Count 248 k/uL (150-450); RBC 4.46 m/uL (4.30-5.90); RDW 12.4 % (11.5-15.5); WBC 10.6 k/uL (3.8-10.6)
--- NOTE | 2021-07-29 18:31 | PN ---
PROGRESS NOTE I am covering for Dr. Sim. DATE OF SERVICE: 07/29/2021 This 36-year-old gentleman admitted with abdominal wall cellulitis is being evaluated by Infectious Disease as well as Surgery. The patient has significant discharge from the umbilical area. The possibility of a urachal cyst or congenital is also being considered at this time. No chest pain. No palpitations. No fever. PHYSICAL EXAMINATION: Alert and oriented x3. The pulse is 90, blood pressure 156/76, respiration 18, temperature 98.0, pulse ox 98% on room air. HEENT: Conjunctivae normal. NECK: No jugular venous distention. CARDIOVASCULAR: S1, S2 muffled. RESPIRATION: Breath sounds diminished at the bases. Scattered rhonchi. ABDOMEN: Soft. Significant cellulitis and erythema and discharge from the umbilical area also present. LABS: WBC 10.6. Other labs are noted. The cultures are pending at this time. ASSESSMENT: 1. Severe abdominal wall infection as well as cellulitis, periumbilical, with possible early sepsis, present on admission. 2. Possible umbilical hernia, infected. 3. Elevated random glucose. 4. Previous history of multiple abdominal umbilical infections and discharge. Rule out congenital abnormalities related to umbilicus with persistent urachus or ligamentum teres. 5. History of hypertension. 6. History of vasectomy. 7. History of colonoscopy. 8. History of anxiety. 9. History of nicotine dependence. 10.Obesity with body mass index 34. 11.FULL CODE. RECOMMENDATIONS AND DISCUSSION: I recommend to continue current medications, continue with symptomatic treatment. Continue with antibiotics. Otherwise, guarded prognosis because of multiple complex medical issues. Further recommendations to follow. Patient is on Unasyn and vancomycin per Dr. Alba for coverage for Gram-positive, including MRSA. Surgery is following the patient. Will continue to monitor. MMODL / IJN: [id number] / [facility]
[2021-07-29] MEDS: SODIUM CHLORIDE 0.9% 1,000 ML IV SCH ×2 (20:27→20:28)
[2021-07-29] MEDS: VERAPAMIL SR 120 MG TABLET.ER PO SCH (20:27)
--- NOTE | 2021-07-29 23:38 | PN ---
PROGRESS NOTE DATE OF SERVICE: 07/29/2021 REASON FOR FOLLOWUP: Abdominal wall cellulitis. INTERVAL HISTORY: The patient is afebrile. The patient's overall abdominal pain and discomfort have decreased. Did have minimal drainage. No chest pain, shortness of breath or cough. No abdominal pain or diarrhea. PHYSICAL EXAMINATION: Blood pressure 145/73 with a pulse of 90, temperature 98.3. He is 99% on room air. General description is a middle-aged male up in the room in no distress. Respiratory system: Unlabored breathing, clear to auscultation anteriorly. Heart S1, S2. Regular rate and rhythm. Abdomen soft. Abdominal wall swelling and redness has decreased. LABS: Hemoglobin is 13.5, white count 10.6, creatinine 0.9. DIAGNOSTIC IMPRESSION AND PLAN: Patient with abdominal wall cellulitis with concern for possible periumbilical abscess with spontaneous drainage. Patient is covered with IV Unasyn and vancomycin; to continue while waiting for the culture to finalize and monitor his clinical course closely. MMODL / IJN: [id number] /
[2021-07-30] MEDS: VANCOMYCIN 1,500 MG in SODIUM CHLORIDE 0.9% 250 ML IVPB SCH ×3 (00:27→17:48)
[2021-07-30] MEDS: AMPICILLIN-SULBACTAM 3 GM in SODIUM CHLORIDE 0.9% 100 ML IVPB SCH ×4 (04:39→21:56)
[2021-07-30] MEDS: lisinopriL 20 MG TAB PO SCH (09:20)
[2021-07-30] MEDS: NICOTINE 14MG/24HR PATCH TRANSDERM SCH (09:21)
--- NOTE | 2021-07-30 13:56 | P.PN ---
<NicoleShandra - Last Filed: 07/30/21 13:47> Subjective Progress Note Date: 07/30/21 CHIEF COMPLAINT: Fever, infection HISTORY OF PRESENT ILLNESS: 36-year-old male who presented to the emergency de partment with complaints of fever and concern for infection at the umbilicus site. Patient had a max temperature 100.8 on admission. He had a CT of the abdomen and pelvis that showed. Umbilical edema consistent with cellulitis with no abscess identified. Small umbilical fat-containing hernia. Yesterday morning patient had purulent drainage from the umbilicus. Likely has an infected urachal cyst. Today the redness across the abdomen has improved some he's getting more clear drainage from the base of the umbilicus. He's been afebrile. PHYSICAL EXAM: VITAL SIGNS: Reviewed. GENERAL: Well-developed in no acute distress. HEENT: No sclera icterus. Extraocular movements grossly intact. Moist buccal mucosa. Head is atraumatic, normocephalic. ABDOMEN: Soft. Nondistended. Nontender. NEUROLOGIC: Alert and oriented. Cranial nerves II through XII grossly intact. ASSESSMENT: 1. Periumbilical cellulitis with likely infected urachal cyst PLAN: 1. Continue broad-spectrum management antibiotics per recommendations from infectious disease 2. Continue symptomatic and supportive care 3. Patient to follow-up outpatient for definitive surgical intervention The impression and plan of care has been dictated as directed. Dr. Ofelia Cooper I performed a history and examination of this patient, discussed the same with the dictator. I agree with the dictator's note ,documented as a scribe. Any additional findings or plans will be noted. Objective - Vital Signs Vital signs: Vital Signs Temp 98 F 07/30/21 07:00 Pulse 74 07/30/21 07:20 Resp 17 07/30/21 07:00 BP 130/77 07/30/21 07:00 Pulse Ox 99 07/30/21 01:32 Intake & Output 07/29/21 07/30/21 07/30/21 18:59 06:59 18:59 Other: Voiding Method Toilet Toilet # Voids 1 3 - Labs CBC & Chem 7: 07/29/21 07:39 07/29/21 07:39 Labs: Abnormal Lab Results - Last 24 Hours (Table) 07/29/21 Range/Units 07:39 Carbon Dioxide 21.2 L (21.6-31.8) mmol/L Anion Gap 12.10 H (4.00-12.00) mmol/L BUN/Creatinine Ratio 11.96 L (12.00-20.00) Ratio Microbiology - Last 24 Hours (Table) 07/27/21 23:20 Blood Culture - Preliminary Blood No Growth after 48 hours 07/27/21 23:35 Blood Culture - Preliminary Blood No Growth after 48 hours 07/28/21 16:50 Gram Stain - Preliminary Abdomen Wound Culture - Preliminary <KennethMontrell - Last Filed: 07/30/21 17:04> Subjective Patient's abdominal exam is improved. The erythema decreased. No tenderness. Small amount of drainage from base of umbilicus. Continue antibiotics. Will follow. Objective - Vital Signs Vital signs: Vital Signs Temp 98.1 F 07/30/21 15:00 Pulse 83 07/30/21 15:00 Resp 16 07/30/21 15:00 BP 142/74 07/30/21 15:00 Pulse Ox 97 07/30/21 15:00 Intake & Output 07/29/21 07/30/21 07/30/21 18:59 06:59 18:59 Other: Voiding Method Toilet Toilet # Voids 1 3 3 # Bowel Movements 2 - Labs CBC & Chem 7: 07/29/21 07:39 07/29/21 07:39 Labs: Microbiology - Last 24 Hours (Table) 07/27/21 23:20 Blood Culture - Preliminary Blood No Growth after 48 hours 07/27/21 23:35 Blood Culture - Preliminary Blood No Growth after 48 hours 07/28/21 16:50 Gram Stain - Preliminary Abdomen Wound Culture - Preliminary
[2021-07-30] MEDS: SODIUM CHLORIDE 0.9% 1,000 ML IV SCH ×2 (20:32→23:41)
[2021-07-30] MEDS: VERAPAMIL SR 120 MG TABLET.ER PO SCH (21:56)
[2021-07-31] MEDS: VANCOMYCIN 1,500 MG in SODIUM CHLORIDE 0.9% 250 ML IVPB SCH ×2 (01:05→07:19)
[2021-07-31] MEDS: AMPICILLIN-SULBACTAM 3 GM in SODIUM CHLORIDE 0.9% 100 ML IVPB SCH ×2 (04:05→09:22)
[2021-07-31] MEDS: NICOTINE 14MG/24HR PATCH TRANSDERM SCH (07:13)
[2021-07-31] MEDS: lisinopriL 20 MG TAB PO SCH (07:18)
[2021-07-31] MEDS: SODIUM CHLORIDE 0.9% 1,000 ML IV SCH (07:19)
--- NOTE | 2021-07-31 08:18 | PN ---
PROGRESS NOTE DATE OF SERVICE: 07/30/2021 REASON FOR FOLLOWUP: Abdominal wall cellulitis with periumbilical abscess. INTERVAL HISTORY: Patient is afebrile. The patient is breathing comfortably. Overall pain in the umbilical area, swelling and redness has decreased. No chest pain, shortness of breath or cough. No abdominal pain or diarrhea. PHYSICAL EXAMINATION: Blood pressure 138/74, pulse of 73, temperature 98.5. He is 98% on room air. General description is a middle-aged male lying in bed in no distress. Respiratory system: Unlabored breathing, clear to auscultation anteriorly. Heart S1, S2. Regular rate and rhythm. Abdomen: Soft. No tenderness. Abdominal wall swelling and redness has slightly decreased. LABS: Hemoglobin is 13.5, white count 10.6, creatinine 0.9. DIAGNOSTIC IMPRESSION AND PLAN: Patient with abdominal wall cellulitis in this patient who did have a small periumbilical abscess. The patient was covered with vancomycin, Unasyn to continue while waiting for the culture to finalize. Continue supportive care. MMODL / IJN: [id number] /
[2021-07-31 08:32] VITALS: RESP 15
--- NOTE | 2021-07-31 11:23 | P.PN ---
Subjective Progress Note Date: 07/31/21 Principal diagnosis: Infected urachal sinus Patient doing well today. Pain is even better. He showered already today. Redness is mostly gone he says. No fevers. Cultures showing normal skin daysi. Objective - Vital Signs Vital signs: Vital Signs Temp 98.1 F 07/31/21 07:05 Pulse 67 07/31/21 07:05 Resp 15 07/31/21 08:00 BP 132/74 07/31/21 07:05 Pulse Ox 98 07/31/21 07:05 Intake & Output 07/30/21 07/31/21 07/31/21 18:59 06:59 18:59 Intake Total 180 500 Balance 180 500 Intake: Oral 180 500 Other: Voiding Method Toilet Toilet # Voids 3 3 # Bowel Movements 2 - Exam Abdomen: Soft, nondistended, minimal tenderness at umbilicus, very slight residual erythema noted - Labs CBC & Chem 7: 07/29/21 07:39 07/29/21 07:39 Labs: Microbiology - Last 24 Hours (Table) 07/27/21 23:20 Blood Culture - Preliminary Blood No Growth after 72 hours 07/27/21 23:35 Blood Culture - Preliminary Blood No Growth after 72 hours 07/28/21 16:50 Gram Stain - Final Abdomen Wound Culture - Final Assessment and Plan (1) Infected urachal cyst Narrative/Plan: Patient doing well clinically. May discharge from my standpoint. Outpatient follow-up planned. Current Visit: Yes Status: Acute Code(s): Q64.4 - MALFORMATION OF URACHUS SNOMED Code(s): 623926550
[2021-07-31 15:12] VITALS: BP 138/76; PULSE 64; TEMP 97.6
--- NOTE | 2021-07-31 16:46 | P.PN ---
Subjective Progress Note Date: 07/30/21 Principal diagnosis: Sepsis/periumbilical cellulitis versus abscess 36-year male presenting to the ER last night for abdominal wall pain swelling and redness patient apparently was over the weekend doing some 5 patient mention accidentally he burned his umbilical area or the next day or 2 he started having more swelling and redness around the umbilicus area, describing the pain to be more of a dull aching to sharp 3-4 out of 10 had radiation with spreading redness and they did concern him and did have minimal drainage from the periumbilical area with the symptom the patient was evaluated by the ER physician on arrival to the ER patient did have a fever of 100.8 F patient did have white count of 12.4 with a left shift kidney function was normal urine was negative jacob PCR was negative blood culture has been obtained patient did have a CT of abdominal pelvis which did show subcutaneous edema around the umbilicus mildly 1 cm in thickness small fat-containing umbilical hernia measuring 3X 1.5 cm no drainable fluid collection patient has been admitted to the hospital started on Unasyn and vancomycin Objective - Vital Signs Vital signs: Vital Signs Temp 98 F 07/30/21 07:00 Pulse 74 07/30/21 07:20 Resp 17 07/30/21 07:00 BP 130/77 07/30/21 07:00 Pulse Ox 99 07/30/21 01:32 Intake & Output 07/29/21 07/30/21 07/30/21 18:59 06:59 18:59 Other: Voiding Method Toilet Toilet # Voids 1 3 - Exam GENERAL DESCRIPTION: Middle-aged male lying in bed, no distress. No tachypnea or accessory muscle of respiration use. HEENT: Shows Pallor , no scleral icterus. Oral mucous membrane is dry. NECK: Trachea central, no thyromegaly. LUNGS: Unlabored breathing. Clear to auscultation anteriorly. No wheeze or crackle. HEART: S1, S2, regular rate and rhythm. ABDOMEN: Soft, periumbilical area swelling and redness which is warm to touch minimal drainage at the blackened area EXTREMITIES: No edema of feet. SKIN: No rash, no masses palpable. NEUROLOGICAL: The patient is awake, alert, oriented x3, mood and affect normal. - Labs CBC & Chem 7: 07/29/21 07:39 07/29/21 07:39 Labs: Abnormal Lab Results - Last 24 Hours (Table) 07/29/21 Range/Units 07:39 Carbon Dioxide 21.2 L (21.6-31.8) mmol/L Anion Gap 12.10 H (4.00-12.00) mmol/L BUN/Creatinine Ratio 11.96 L (12.00-20.00) Ratio Microbiology - Last 24 Hours (Table) 07/27/21 23:20 Blood Culture - Preliminary Blood No Growth after 48 hours 07/27/21 23:35 Blood Culture - Preliminary Blood No Growth after 48 hours 07/28/21 16:50 Gram Stain - Preliminary Abdomen Wound Culture - Preliminary Assessment and Plan Assessment: 1. Sepsis/matilda-umbilical cellulitis/abscess - Patient remains on IV vancomycin and Unasyn; ID on board and we will recommend final antibiotics once culture results are available 2. Hyperglycemia; no history of diabetes; possibly related to sepsis; blood glucose is stable 3. Hypertension; verapamil 120 mg daily at bedtime, lisinopril 40 mg daily 4. Anxiety; Ativan 0.5 mg IV every 6 hours when necessary
== END 2021-07-31 17:10 | disposition home or self-care (01) | DRG 872 ==
LOC: EC 19:42 → 1SOBS 07-28 01:39 → 6NMEDSUR 07-28 13:56 → OBSVTOIN 07-30 09:01
PROVIDERS: ADMIT Hospitalist; ATTEND Hospitalist
DX: A41.9 Sepsis, unspecified organism (principal); L03.311 Cellulitis of abdominal wall; Q64.4 Malformation of urachus; R73.9 Hyperglycemia, unspecified; Z20.822 Contact with and (suspected) exposure to COVID-19; I10 Essential (primary) hypertension; F41.9 Anxiety disorder, unspecified; E66.9 Obesity, unspecified; K42.9 Umbilical hernia without obstruction or gangrene; Z68.34 Body mass index [BMI] 34.0-34.9, adult; Z79.899 Other long term (current) drug therapy; Z98.890 Other specified postprocedural states
CPT/HCPCS: 36415; 74177; 80053; 80202; 81003; 82150; 83690; 85025; 86140; 87040; 87070; 87205; 87635; 96365; 96367; 96375; 99284

== ENCOUNTER 2021-09-27 08:24 | Day surgery (SDC) | payer BC ==
[2021-09-21 08:44] VITALS: BMI 33.6
[~2021-09-27 08:24] MED LIST: ACETAMINOPHEN TAB 500 MG TAB PO PRN; HEPARIN SODIUM,PORCINE/PF 5,000 UNIT/0.5 ML SYRINGE SQ PRN
[2021-09-27] MEDS ORDERED: HYDROmorphone 0.5 MG/0.5 ML SYRINGE IVP PRN (08:30)
[2021-09-27] MEDS ORDERED: LACTATED RINGERS 1,000 ML IV SCH (08:30)
[2021-09-27] MEDS ORDERED: DEXAMETHASONE SOD PHOSPHATE 4 MG/ML 1 ML VIAL IV ONE (08:30)
[2021-09-27] MEDS ORDERED: ONDANSETRON 4 MG/2 ML VIAL IVP ONE (08:30)
[2021-09-27] MEDS ORDERED: MIDAZOLAM 2 MG/2 ML VIAL IV PRN (08:30)
--- NOTE | 2021-09-27 09:44 | P.ANPRN ---
Procedure Note - Anesthesia - Nerve Block Performed Bilateral Rectus Abdominis Single Time Out Performed: Yes Date of Procedure: 09/27/21 Procedure Start Time: : Procedure Stop Time: :40 Location of Patient: PreOp Indication: Acute Post-Operative Pain, Requested by Surgeon Sedation Type: Sedate with meaningful contact maintained Preparation: Sterile Prep, Sterile Dressing Position: Supine Catheter: None Needle Types: Pajunk Needle Gauge: 20 Ultrasound used to visualize needle placement: Yes Ultrasound used to observe medication spread: Yes Injectate: 0.5% Ropivacaine (see comment for volume) (15 ml + decadron 5 mg per side) Blood Aspirated: No Pain Paresthesia on Injection Noted: No Resistance on Injection: Normal Image Stored and Saved: Yes Events: Uneventful and Well Tolerated
[2021-09-27] MEDS ORDERED: fentaNYL (PF) 50 MCG/ML 2 ML AMP ONE (09:50)
[2021-09-27] MEDS ORDERED: SUCCINYLCHOLINE CHLORIDE VIAL 200 MG/10 ML VIAL IV ONE (09:50)
[2021-09-27] MEDS ORDERED: LIDOCAINE 1% INJ 10MG/ML (20 ML MDV) ONE (09:50)
[2021-09-27] MEDS ORDERED: NEOSTIGMINE 1 MG/ML 10 ML VIAL ONE (09:50)
[2021-09-27] MEDS ORDERED: DEXAMETHASONE SOD PHOSPHATE 10 MG/ML 1 ML VIAL ONE (09:50)
[2021-09-27] MEDS ORDERED: PROPOFOL 10 MG/ML 20 ML VIAL IV ONE (09:50)
[2021-09-27] MEDS ORDERED: GLYCOPYRROLATE 0.2 MG/ML 2 ML VIAL ONE (09:50)
[2021-09-27] MEDS ORDERED: PHENYLEPHRINE-0.9% NACL SYG 1,000 MCG/10 ML SYRINGE ONE (09:50)
[2021-09-27] MEDS ORDERED: ROCURONIUM 10 MG/ML (5 ML VIAL) IV ONE (09:50)
[2021-09-27] MEDS ORDERED: ROPIVACAINE 5 MG/ML 30 ML VIAL ONE (09:50)
--- NOTE | 2021-09-27 09:53 | P.GSHP ---
History of Present Illness H&P Date: 09/27/21 Chief Complaint: Infected urachal sinus 36-year-old male known to our service. Here today for elective excision infected urachal cyst/sinus. Patient has had intermittent episodes of redness around the umbilicus with pain. Occasionally notices some drainage from the umbilicus as well. Recently hospitalized with fairly significant abdominal wall cellulitis. CAT scan was performed during the recent hospitalization showing no evidence of inflammatory changes below the level of the fascia. Patient appears to have a small umbilical hernia as well. Past Medical History Past Medical History: Hypertension Additional Past Medical History / Comment(s): hx urachal sinus , small hernia History of Any Multi-Drug Resistant Organisms: None Reported Past Surgical History: No Surgical Hx Reported Additional Past Surgical History / Comment(s): Vasectomy, colonoscopy, Past Anesthesia/Blood Transfusion Reactions: No Reported Reaction Smoking Status: Current every day smoker - Past Family History Father Family Medical History: No Reported History Additional Family Medical History / Comment(s): none Mother Family Medical History: No Reported History Additional Family Medical History / Comment(s): none Medications and Allergies Home Medications Medication Instructions Recorded Confirmed Type Verapamil Sr [Isoptin Sr] 120 mg PO HS 07/27/21 09/27/21 History lisinopriL 40 mg PO DAILY 07/27/21 09/27/21 History Allergies Allergy/AdvReac Type Severity Reaction Status Date / Time adhesive tape Allergy Rash/Hives Verified 09/27/21 08:39 Surgical - Exam Vital Signs Temp Pulse Resp BP Pulse Ox 98.7 F 102 H 16 145/73 99 09/27/21 08:59 09/27/21 08:59 09/27/21 08:59 09/27/21 08:59 09/27/21 08:59 Physical exam: General: Well-developed, well-nourished HEENT: Normocephalic, sclerae nonicteric Abdomen: Nontender, nondistended Extremities: No edema Neuro: Alert and oriented Assessment and Plan (1) Infected urachal cyst Narrative/Plan: 36-year-old male with infected urachal cyst. Options reviewed in the hospital and in the office with the patient. These were again reviewed today. Will proceed with excision of infected urachal cyst. We did discuss leaving the umbilicus versus umbilectomy. Risk of recurrence slightly higher with out a umbilectomy. Patient and his would prefer that the umbilicus be removed at this time. Risks of bleeding, infection, recurrence, recurrent hernia, scarring, bladder and bowel injury, anesthesia related, locations reviewed. They understand and wish to proceed. Current Visit: No Status: Acute Code(s): Q64.4 - MALFORMATION OF URACHUS SNOMED Code(s): 693585584
[2021-09-27] MEDS ORDERED: BUPIVACAIN-EPI 0.25%-1:200,000 30 ML VIAL SQ ONE ×2 (10:04→10:25)
[2021-09-27] MEDS ORDERED: LACTATED RINGERS 1,000 ML IV ONE (10:30)
[2021-09-27 10:54] VITALS: TEMP 97.6
--- NOTE | 2021-09-27 11:07 | P.OP ---
Date of Procedure: 09/27/21 Procedure(s) Performed: PREOPERATIVE DIAGNOSIS: Infected urachal cyst, umbilical hernia POSTOPERATIVE DIAGNOSIS: Same PROCEDURE: Excision infected urachal cyst with umbilical herniorrhaphy, umbilectomy SURGEON: Dr. Cooper ANESTHESIA: General OPERATIVE PROCEDURE DETAILS: The patient was placed in the operating table in the supine position. Elliptical incision was made around the umbilicus. The subcutaneous tissues were dissected bluntly and with cautery. Dissection took place down to the level of the fascia where the base of the umbilicus was removed from the fascia. At that point a small 1 cm umbilical hernia was noted. It should be noted there was no evidence of infection or purulence as we dissected through the tissues. The area was then irrigated. The 1 x 1 cm defect was closed using [id number] 0 Ethibond sutures. The subcutaneous tissues were reapproximated using inverted 2-0 & 3-0 Vicryl sutures. The skin was closed using 4-0 Monocryl sutures. Skin glue and sterile dressings were then applied. DISPOSITION: Stable to recovery room HERNIA CHARACTERISTICS: Length: 1 cm Width: 1 cm Type: Umbilical TYPE OF MESH USED: None LOCATION OF MESH: None FIXATION: None DISPOSITION: Stable to recovery room
[2021-09-27 11:46] VITALS: PULSE 92; RESP 16
[2021-09-27] MEDS ORDERED: IBUPROFEN 600 MG TAB PO SCH (12:00)
[2021-09-27 12:05] VITALS: BP 120/58
[2021-09-27] MEDS ORDERED: ACETAMINOPHEN TAB 325 MG TAB PO SCH (15:00)
== END 2021-09-27 12:09 | disposition home or self-care (01) ==
LOC: OR 08:24
PROVIDERS: ATTEND Surgery
DX: Q64.4 Malformation of urachus (principal); K42.9 Umbilical hernia without obstruction or gangrene; I10 Essential (primary) hypertension; F41.9 Anxiety disorder, unspecified; Z98.52 Vasectomy status; Z98.890 Other specified postprocedural states; F17.200 Nicotine dependence, unspecified, uncomplicated; Z79.899 Other long term (current) drug therapy; Z91.09 Other allergy status, other than to drugs and biological substances
CPT/HCPCS: 64999; 88304; 49250; 51500; J2250; J0330; J1100 ×2; J2710; J0690; J2405; J2001; J3010; J2795; J2370; J2704; J1644